=== PATIENT | female | born 1950 | race Caucasian/White ===

== ENCOUNTER 2019-06-18 08:18 | Emergency (ER) | payer MEDICARE ==
--- NOTE | 2019-06-18 08:48 | RAD REPORT ---
EXAM DESCRIPTION: CT - Ct Stroke Brain Wo Cont - 06/18/2019 8:37 am CLINICAL HISTORY: Acute onset right-sided weakness CLINICAL HISTORY: None. TECHNIQUE: Axial 5 millimeter thick images of the head were obtained without IV contrast. All CT scans are performed using dose optimization technique as appropriate and may include automated exposure control or mA/KV adjustment according to patient size. FINDINGS: No intracranial hemorrhage, mass, or cerebral edema. No acute cortical based infarction id entified. No cortical edema or sulcal effacement. No extra-axial fluid collections. Calixto matter-whit e matter differentiation is preserved. Atrophy is minimal. Ventricles are normal in size. Patient has prominent chronic ischemic changes in the cerebral white matter. Significant disease extends into the external capsule on the left and the posterior limb internal capsule on the left. Visualized portions of the mastoid air cells, paranasal sinuses, and orbits are unremarkable. Findings telephoned to doctor Andersen 8:44 a.m.. IMPRESSION: No intracranial hemorrhage is present. An acute cortical based infarction is not evident at this time. The patient has extensive cerebral hemisphere white matter disease that also extends into the left-si de posterior limb internal capsule and left-side external capsule. These changes could easily mask a nonhemorrhagic acute CVA.
[2019-06-18] MEDS ORDERED: ALTEPLASE 100 ML IV ONE (08:57)
--- NOTE | 2019-06-18 08:59 | EDPHYS ---
Physician Documentation [facility] Name: Brii Greco Age: 69 yrs Sex: Female : 1950 Arrival Date: 06/18/2019 Time: 08:20 Bed 2 Private MD: TERESA Physician Marcos Andersen HPI: 06/18 08:52 This 69 yrs old Female presents to ER via Ambulatory with complaints of mira Numbness Of Arm, Numbness Of Hand. 08:52 The patient or guardian complains of decreased range of motion, weakness. The mira complaints affect the right bicep, dorsal aspect of right forearm, right tricep and palmar aspect of right forearm. 08:53 Context: The problem was sustained at home. Onset: The symptoms/episode began/occurred mira 2 hour(s) ago. Treatment prior to arrival includes: no previous treatment. The patient's problem is reported as paresthesias, weakness, in the right lower extremity, in the left upper extremity. Historical: - Allergies: 10:38 No Known Allergies; sg - Home Meds: 10:37 Clonidine Oral [Active]; anxiety medication [Active]; ipratropium-albuterol inhalation sg Inhl [Active]; - PMHx: 10:37 Hypertension; Anxiety; COPD; sg - Immunization history:: Adult Immunizations not up to date. - Social history:: Smoking status: Patient/guardian denies using tobacco. - Family history:: not pertinent. - Ebola Screening: : Patient negative for fever greater than or equal to 101.5 degrees Fahrenheit, and additional compatible Ebola Virus Disease symptoms Patient denies exposure to infectious person Patient denies travel to an Ebola-affected area in the 21 days before illness onset No symptoms or risks identified at this time. ROS: 08:53 Constitutional: Negative for fever, chills, and weight loss, Eyes: Negative for injury, mira pain, redness, and discharge, ENT: Negative for injury, pain, and discharge, Neck: Negative for injury, pain, and swelling, Cardiovascular: Negative for chest pain, palpitations, and edema, Respiratory: Negative for shortness of breath, cough, wheezing, and pleuritic chest pain, Abdomen/GI: Negative for abdominal pain, nausea, vomiting, diarrhea, and constipation, Back: Negative for injury and pain, : Negative for injury, bleeding, discharge, and swelling, MS/Extremity: Negative for injury and deformity, Skin: Negative for injury, rash, and discoloration, Psych: Negative for depression, anxiety, suicide ideation, homicidal ideation, and hallucinations, Allergy/Immunology: Negative for hives, rash, and allergies, Endocrine: Negative for neck swelling, polydipsia, polyuria, polyphagia, and marked weight changes, Hematologic/Lymphatic: Negative for swollen nodes, abnormal bleeding, and unusual bruising. 08:53 Neuro: Positive for weakness, of the right arm and right leg. Exam: 08:53 Radiologist reports: no blood, old changes mira 08:53 Constitutional: This is a well developed, well nourished patient who is awake, alert, and in no acute distress. Head/Face: Normocephalic, atraumatic. Eyes: Pupils equal round and reactive to light, extra-ocular motions intact. Lids and lashes normal. Conjunctiva and sclera are non-icteric and not injected. Cornea within normal limits. Periorbital areas with no swelling, redness, or edema. ENT: Nares patent. No nasal discharge, no septal abnormalities noted. Tympanic membranes are normal and external auditory canals are clear. Oropharynx with no redness, swelling, or masses, exudates, or evidence of obstruction, uvula midline. Mucous membranes moist. Neck: Trachea midline, no thyromegaly or masses palpated, and no cervical lymphadenopathy. Supple, full range of motion without nuchal rigidity, or vertebral point tenderness. No Meningismus. Chest/axilla: Normal chest wall appearance and motion. Nontender with no deformity. No lesions are appreciated. Cardiovascular: Regular rate and rhythm with a normal S1 and S2. No gallops, murmurs, or rubs. Normal PMI, no JVD. No pulse deficits. Respiratory: Lungs have equal breath sounds bilaterally, clear to auscultation and percussion. No rales, rhonchi or wheezes noted. No increased work of breathing, no retractions or nasal flaring. Abdomen/GI: Soft, non-tender, with normal bowel sounds. No distension or tympany. No guarding or rebound. No evidence of tenderness throughout. Back: No spinal tenderness. No costovertebral tenderness. Full range of motion. Female : Normal external genitalia. Skin: Warm, dry with normal turgor. Normal color with no rashes, no lesions, and no evidence of cellulitis. Psych: Awake, alert, with orientation to person, place and time. Behavior, mood, and affect are within normal limits. 08:53 Neuro: Orientation: is normal, appropriate for stated age, no acute changes, Mentation: is normal, appropriate for stated age, no acute changes, Memory: is normal, appropriate for stated age, no acute changes, Cranial nerves: grossly normal, is grossly normal based on the patient's age, no acute changes, Motor: moves all fours, strength is 4/5 in the right arm and right leg, Sensation: light touch is decreased in the right arm and right leg, Gait: not tested. Deep tendon reflexes are 2+ (normal) in the bilateral brachioradialis, bicep, tricep and patellar and Achilles tendons, Babinski testing is normal. Vital Signs: 08:40 Weight 77.07 kg (M); sg 08:45 BP 172 / 80; Pulse 81; Resp 16; Temp 97.7; Pulse Ox 100% on R/A; sg 09:00 BP 177 / 84; Pulse 81; Resp 17; Pulse Ox 98% on R/A; sg 09:15 BP 184 / 94; Pulse 71; Resp 17; Pulse Ox 98% on R/A; sg 09:30 BP 179 / 92; Pulse 72; Resp 17; Pulse Ox 95% on R/A; sg 09:45 BP 168 / 92; Pulse 71; Resp 17; Pulse Ox 96% on R/A; sg 10:00 BP 168 / 92; Pulse 77; Resp 16; Pulse Ox 98% on R/A; sg 10:15 sg 11:10 BP 177 / 82; Pulse 71; Resp 18; Temp 97.1; Pulse Ox 98% on R/A; Pain 0/10; sg 10:15 SEE TPA VS sheet for q 15 min VS sg NIH Stroke Scale Scores: 08:52 NIHSS Score: 5 09:00 NIHSS Score: 5 [facility] 10:00 NIHSS Score: 0 MDM: 08:42 Patient medically screened. [facility] 08:53 Data reviewed: vital signs, nurses notes, lab test result(s), EKG, radiologic studies, [facility] CT scan, plain films. 06/18 08:31 Order name: Basic Metabolic Panel; Complete Time: 09:51 06/18 08:31 Order name: CBC with Diff; Complete Time: 09:51 ss 06/18 08:31 Order name: Protime (+inr); Complete Time: 09:51 ss 06/18 08:31 Order name: Ptt, Activated; Complete Time: 09:51 ss 06/18 09:02 Order name: Glucose, Ancillary Testing; Complete Time: 09:51 EDMS 06/18 08:31 Order name: CT Stroke Brain w/o Contrast; Complete Time: 09:51 ss 06/18 08:31 Order name: Stroke CXR 1 View; Complete Time: 10:41 ss 06/18 08:45 Order name: CT Head Angio; Complete Time: 10:41 mira 06/18 08:31 Order name: EKG; Complete Time: 08:32 ss 06/18 08:31 Order name: Accucheck; Complete Time: 08:58 ss 06/18 08:31 Order name: Cardiac monitoring; Complete Time: 08:58 ss 06/18 08:31 Order name: EKG - Nurse/Tech; Complete Time: 08:58 ss 06/18 08:31 Order name: IV Saline Lock; Complete Time: 08:58 ss 06/18 08:31 Order name: Labs collected and sent; Complete Time: 08:58 ss 06/18 08:31 Order name: NPO; Complete Time: 08:58 ss 06/18 08:31 Order name: O2 Per Protocol; Complete Time: 08:58 ss 06/18 08:31 Order name: O2 Sat Monitoring; Complete Time: 08:58 ss 06/18 08:31 Order name: Stroke Swallow Screen; Complete Time: 10:36 ss Administered Medications: 09:08 Drug: ACTIvase {Co-Signature: sg (Bruce Tomlin RN).} Route: IV Thrombolytics; Rate: ss calculated rate; Infused Over: 60 mins; 10:08 Follow up: Response: No adverse reaction; Marked relief of symptoms sg 09:20 Drug: foLIC Acid 1 mg Route: IVPB; Site: left wrist; sg 10:00 Follow up: Response: No adverse reaction; IV Status: Completed infusion sg 09:20 Drug: Pepcid 20 mg Route: IVP; Site: left wrist; sg 09:40 Follow up: Response: No adverse reaction sg 09:20 Drug: Aspirin 81 mg Route: PO; sg 09:30 Follow up: Response: No adverse reaction sg 10:04 Drug: NS 0.9% 1000 ml Route: IV; Rate: 1 bolus; Site: left wrist; sg 11:00 Follow up: Response: No adverse reaction; IV Status: Completed infusion; IV Intake: sg 1000ml 10:30 Drug: SOLU-Medrol 125 mg Route: IVP; Site: left wrist; sg 11:00 Follow up: Response: No adverse reaction sg 10:30 Drug: Xopenex 1.25 mg Route: Inhalation; sg 10:30 Drug: AtroVENT Aerosol 0.5 mg Route: Inhalation; sg 11:08 Drug: Ativan 0.5 mg Route: IVP; Site: right wrist; sg 11:08 Follow up: Response: No adverse reaction; Medication administered at discharge.; RASS: sg Alert and Calm (0) 11:08 Drug: Zofran 4 mg Route: IVP; Site: right wrist; sg 11:10 Follow up: Response: No adverse reaction sg 19:45 Not Given (Patient Refused): Rocephin 1 grams IV at per protocol once; Given slow IV sg push per pharmacy instructions Disposition: 06/18/19 08:[address] [facility]. Diagnosis is Cerebral infarction. - Reason for transfer: Higher level of care. - Accepting physician is [facility] , neuro. - Condition is Fair. - Problem is new. - Symptoms have improved. NIH Stroke Scale - NIH Stroke Score Date: 06/18/2019 Time: 08:52 Total Score = 5 1a. Level of Consciousness (LOC) - 0(Alert) 1b. Level of Consciousness (LOC) (Year \T\ Age) - 0(Both) 1c. LOC Commands (Open \T\ Closes Eyes/Psychiatry Adult Physician) - 0(Both) 2. Best Gaze (Lateral Gaze Paresis) - 0(Normal) 3. Visual Field Loss - 0(No visual loss) 4. Facial Palsy - 0(Normal) 5a. Left Arm: Motor (10-second hold) - 0(No drift) 5b. Right Arm: Motor (10-second hold) - 2(Drift, some effort against gravity) 6a. Left Leg: Motor (5-second hold - always test supine) - 0(No drift) 6b. Right Leg: Motor (5-second hold - always test supine) - 2(Drift, some effort against gravity) 7. Limb Ataxia (finger/nose \T\ heel/cordova - test with eyes open) - 1(Present in one limb) 8. Sensory Loss (pinprick arms/legs/face) - 0(Normal) 9. Best Language: Aphasia (description/naming/reading) - 0(No aphasia) 10. Dysarthria (speech clarity - read or repeat words) - 0(Normal) 11. Extinction and Inattention (visual/tactile/auditory/spatial/personal) - 0(No abnormality) Initials: NIH Stroke Scale - NIH Stroke Score Date: 06/18/2019 Time: 09:00 Total Score = 5 1a. Level of Consciousness (LOC) - 0(Alert) 1b. Level of Consciousness (LOC) (Year \T\ Age) - 0(Both) 1c. LOC Commands (Open \T\ Closes Eyes/Psychiatry Adult Physician) - 0(Both) 2. Best Gaze (Lateral Gaze Paresis) - 0(Normal) 3. Visual Field Loss - 0(No visual loss) 4. Facial Palsy - 0(Normal) 5a. Left Arm: Motor (10-second hold) - 0(No drift) 5b. Right Arm: Motor (10-second hold) - 1(Drift) 6a. Left Leg: Motor (5-second hold - always test supine) - 0(No drift) 6b. Right Leg: Motor (5-second hold - always test supine) - 1(Drift) 7. Limb Ataxia (finger/nose \T\ heel/cordova - test with eyes open) - 2(Present in two limbs) 8. Sensory Loss (pinprick arms/legs/face) - 1(Mild to moderate loss) 9. Best Language: Aphasia (description/naming/reading) - 0(No aphasia) 10. Dysarthria (speech clarity - read or repeat words) - 0(Normal) 11. Extinction and Inattention (visual/tactile/auditory/spatial/personal) - 0(No abnormality) Initials: [facility] NIH Stroke Scale - NIH Stroke Score Date: 06/18/2019 Time: 10:00 Total Score = 0 1a. Level of Consciousness (LOC) - 0(Alert) 1b. Level of Consciousness (LOC) (Year \T\ Age) - 0(Both) 1c. LOC Commands (Open \T\ Closes Eyes/Psychiatry Adult Physician) - 0(Both) 2. Best Gaze (Lateral Gaze Paresis) - 0(Normal) 3. Visual Field Loss - 0(No visual loss) 4. Facial Palsy - 0(Normal) 5a. Left Arm: Motor (10-second hold) - 0(No drift) 5b. Right Arm: Motor (10-second hold) - 0(No drift) 6a. Left Leg: Motor (5-second hold - always test supine) - 0(No drift) 6b. Right Leg: Motor (5-second hold - always test supine) - 0(No drift) 7. Limb Ataxia (finger/nose \T\ heel/cordova - test with eyes open) - 0(Absent) 8. Sensory Loss (pinprick arms/legs/face) - 0(Normal) 9. Best Language: Aphasia (description/naming/reading) - 0(No aphasia) 10. Dysarthria (speech clarity - read or repeat words) - 0(Normal) 11. Extinction and Inattention (visual/tactile/auditory/spatial/personal) - 0(No abnormality) Initials: Signatures: Dispatcher [employer] EDBrcue Doty RN RN sg Anderson, Corey, MD MD cha Smirch, Shelby, RN RN ss Bruce galo Corrections: (The following items were deleted from the chart) 11:11 08:58 06/18/2019 08:[address] [facility]. sg Diagnosis is Cerebral infarction. Reason for transfer: Higher level of care. Accepting physician is darshan , neuro. Condition is Fair. Problem is new. Symptoms have improved. mira
--- NOTE | 2019-06-18 08:59 | ER ---
Nurse's Notes [facility] Name: Brii Greco Age: 69 yrs Sex: Female : 1950 Arrival Date: 06/18/2019 Time: 08:20 Bed 2 Private MD: Diagnosis: Cerebral infarction Presentation: 06/18 08:28 Presenting complaint: Patient states: R sided weakness that began this morning at ss approximately 0700. Pt states, "I was dropping my grandson off at school this morning and when I let go of the steering wheel, my R arm just dropped. It felt a little tingling from my R elbow down and now it's just warm. My leg is also a little heavy and I just noticed that when I was getting into the wheelchair." Denies pain at this time. VAN scoring negative. Transition of care: patient was not received from another setting of care. Onset of symptoms was June 18, 2019 at 07:00. Risk Assessment: Do you want to hurt yourself or someone else? Patient reports no desire to harm self or others. Initial Sepsis Screen: Does the patient have a suspected source of infection? No. Patient's initial sepsis screen is negative. Care prior to arrival: None. 08:28 Method Of Arrival: Ambulatory ss 08:28 Acuity: ASHLY 2 ss Historical: - Allergies: 10:38 No Known Allergies; sg - Home Meds: 10:37 Clonidine Oral [Active]; anxiety medication [Active]; ipratropium-albuterol inhalation sg Inhl [Active]; - PMHx: 10:37 Hypertension; Anxiety; COPD; sg - Immunization history:: Adult Immunizations not up to date. - Social history:: Smoking status: Patient/guardian denies using tobacco. - Family history:: not pertinent. - Ebola Screening: : Patient negative for fever greater than or equal to 101.5 degrees Fahrenheit, and additional compatible Ebola Virus Disease symptoms Patient denies exposure to infectious person Patient denies travel to an Ebola-affected area in the 21 days before illness onset No symptoms or risks identified at this time. Assessment: 08:40 General: Appears in no apparent distress. well groomed, well developed, well nourished, sg Behavior is calm, cooperative, appropriate for age. Pain: Denies pain. Neuro: Level of Consciousness is awake, alert, obeys commands, Oriented to person, place, time, Speech is normal, Facial symmetry appears normal. Neuro: Reports numbness in right hand and right leg weakness in right leg. Cardiovascular: Patient's skin is warm and dry. Chest pain is denied. Respiratory: Airway is patent Respiratory effort is even, unlabored, Respiratory pattern is regular, symmetrical. GI: No signs and/or symptoms were reported involving the gastrointestinal system. : No signs and/or symptoms were reported regarding the genitourinary system. EENT: No signs and/or symptoms were reported regarding the EENT system. Derm: Skin is pale, Skin temperature is warm. Musculoskeletal: Circulation, motion, and sensation intact. 09:40 Reassessment: Patient appears in no apparent distress at this time. Patient and/or sg family updated on plan of care and expected duration. Pain level reassessed. Patient is alert, oriented x 3, equal unlabored respirations, skin warm/dry/pink. Patient states feeling better. 10:00 Reassessment: Patient appears in no apparent distress at this time. pt reports sg improvement in symptoms, notified. Vital Signs: 08:40 Weight 77.07 kg (M); sg 08:45 BP 172 / 80; Pulse 81; Resp 16; Temp 97.7; Pulse Ox 100% on R/A; sg 09:00 BP 177 / 84; Pulse 81; Resp 17; Pulse Ox 98% on R/A; sg 09:15 BP 184 / 94; Pulse 71; Resp 17; Pulse Ox 98% on R/A; sg 09:30 BP 179 / 92; Pulse 72; Resp 17; Pulse Ox 95% on R/A; sg 09:45 BP 168 / 92; Pulse 71; Resp 17; Pulse Ox 96% on R/A; sg 10:00 BP 168 / 92; Pulse 77; Resp 16; Pulse Ox 98% on R/A; sg 10:15 sg 11:10 BP 177 / 82; Pulse 71; Resp 18; Temp 97.1; Pulse Ox 98% on R/A; Pain 0/10; sg 10:15 SEE TPA VS sheet for q 15 min VS sg NIH Stroke Scale Scores: 08:52 NIHSS Score: 5 sg 09:00 NIHSS Score: 5 mira 10:00 NIHSS Score: 0 ED Course: 08:20 Patient arrived in ED. as 08:30 Triage completed. ss 08:30 Arm band placed on right wrist. ss 08:37 CT Stroke Brain w/o Contrast In Process Unspecified. EDMS 08:40 Patient has correct armband on for positive identification. Bed in low position. Call sg light in reach. Pulse ox on. NIBP on. Warm blanket given. Verbal reassurance given. Head of bed elevated. 08:42 Marcos Andersen MD is Attending Physician. mira 08:55 Inserted saline lock: 20 gauge in right wrist, using aseptic technique. sg 08:56 EKG done, by technical publications writer. reviewed by Marcos Andersen MD. at1 08:[address] Andersen with Bruce Cintron O And M Supervisor from [facility]. 08:58 Inserted saline lock: 20 gauge in left wrist, using aseptic technique. ms 09:[address] Crane the neurologist cotton factor for [facility] with Dr. Andersen for patient transfer consultation. 09:18 administrative approval given by Bruce Cintron Other Spatial Scientist O And M Supervisor. patient eb has been accepted to [facility] 7511/ Dr. Crane has accepted the patient in transfer/ report to be called to [phone]. 09:24 Bruce Tomlin, RN is Primary Nurse. sg 09:29 Stroke CXR 1 View In Process Unspecified. EDMS 09:55 CT Head Angio In Process Unspecified. EDMS 11:10 No provider procedures requiring assistance completed. Patient transferred, IV remains sg in place. intact, No redness/swelling at site. Administered Medications: 09:08 Drug: ACTIvase {Co-Signature: iraj (Bruce Tomlin RN).} Route: IV Thrombolytics; Rate: ss calculated rate; Infused Over: 60 mins; 10:08 Follow up: Response: No adverse reaction; Marked relief of symptoms sg 09:20 Drug: foLIC Acid 1 mg Route: IVPB; Site: left wrist; sg 10:00 Follow up: Response: No adverse reaction; IV Status: Completed infusion sg 09:20 Drug: Pepcid 20 mg Route: IVP; Site: left wrist; sg 09:40 Follow up: Response: No adverse reaction sg 09:20 Drug: Aspirin 81 mg Route: PO; sg 09:30 Follow up: Response: No adverse reaction sg 10:04 Drug: NS 0.9% 1000 ml Route: IV; Rate: 1 bolus; Site: left wrist; sg 11:00 Follow up: Response: No adverse reaction; IV Status: Completed infusion; IV Intake: sg 1000ml 10:30 Drug: SOLU-Medrol 125 mg Route: IVP; Site: left wrist; sg 11:00 Follow up: Response: No adverse reaction sg 10:30 Drug: Xopenex 1.25 mg Route: Inhalation; sg 10:30 Drug: AtroVENT Aerosol 0.5 mg Route: Inhalation; sg 11:08 Drug: Ativan 0.5 mg Route: IVP; Site: right wrist; sg 11:08 Follow up: Response: No adverse reaction; Medication administered at discharge.; RASS: sg Alert and Calm (0) 11:08 Drug: Zofran 4 mg Route: IVP; Site: right wrist; sg 11:10 Follow up: Response: No adverse reaction sg 19:45 Not Given (Patient Refused): Rocephin 1 grams IV at per protocol once; Given slow IV sg push per pharmacy instructions Outcome: 08:58 ER care complete, transfer ordered by . mira 11:10 Transferred by ground EMS to [facility], Transfer form completed. sg 11:10 Condition: good 11:10 Instructed on the need for transfer, safety practices, Demonstrated understanding of instructions, follow-up care. 11:11 Patient left the ED. NIH Stroke Scale - NIH Stroke Score Date: 06/18/2019 Time: 08:52 Total Score = 5 1a. Level of Consciousness (LOC) - 0(Alert) 1b. Level of Consciousness (LOC) (Year \\T\\ Age) - 0(Both) 1c. LOC Commands (Open \\T\\ Closes Eyes/Revenue Liaison) - 0(Both) 2. Best Gaze (Lateral Gaze Paresis) - 0(Normal) 3. Visual Field Loss - 0(No visual loss) 4. Facial Palsy - 0(Normal) 5a. Left Arm: Motor (10-second hold) - 0(No drift) 5b. Right Arm: Motor (10-second hold) - 2(Drift, some effort against gravity) 6a. Left Leg: Motor (5-second hold - always test supine) - 0(No drift) 6b. Right Leg: Motor (5-second hold - always test supine) - 2(Drift, some effort against gravity) 7. Limb Ataxia (finger/nose \\T\\ heel/cordova - test with eyes open) - 1(Present in one limb) 8. Sensory Loss (pinprick arms/legs/face) - 0(Normal) 9. Best Language: Aphasia (description/naming/reading) - 0(No aphasia) 10. Dysarthria (speech clarity - read or repeat words) - 0(Normal) 11. Extinction and Inattention (visual/tactile/auditory/spatial/personal) - 0(No abnormality) Initials: NIH Stroke Scale - NIH Stroke Score Date: 06/18/2019 Time: 09:00 Total Score = 5 1a. Level of Consciousness (LOC) - 0(Alert) 1b. Level of Consciousness (LOC) (Year \\T\\ Age) - 0(Both) 1c. LOC Commands (Open \\T\\ Closes Eyes/Revenue Liaison) - 0(Both) 2. Best Gaze (Lateral Gaze Paresis) - 0(Normal) 3. Visual Field Loss - 0(No visual loss) 4. Facial Palsy - 0(Normal) 5a. Left Arm: Motor (10-second hold) - 0(No drift) 5b. Right Arm: Motor (10-second hold) - 1(Drift) 6a. Left Leg: Motor (5-second hold - always test supine) - 0(No drift) 6b. Right Leg: Motor (5-second hold - always test supine) - 1(Drift) 7. Limb Ataxia (finger/nose \\T\\ heel/cordova - test with eyes open) - 2(Present in two limbs) 8. Sensory Loss (pinprick arms/legs/face) - 1(Mild to moderate loss) 9. Best Language: Aphasia (description/naming/reading) - 0(No aphasia) 10. Dysarthria (speech clarity - read or repeat words) - 0(Normal) 11. Extinction and Inattention (visual/tactile/auditory/spatial/personal) - 0(No abnormality) Initials: [facility] NIH Stroke Scale - NIH Stroke Score Date: 06/18/2019 Time: 10:00 Total Score = 0 1a. Level of Consciousness (LOC) - 0(Alert) 1b. Level of Consciousness (LOC) (Year \\T\\ Age) - 0(Both) 1c. LOC Commands (Open \\T\\ Closes Eyes/Revenue Liaison) - 0(Both) 2. Best Gaze (Lateral Gaze Paresis) - 0(Normal) 3. Visual Field Loss - 0(No visual loss) 4. Facial Palsy - 0(Normal) 5a. Left Arm: Motor (10-second hold) - 0(No drift) 5b. Right Arm: Motor (10-second hold) - 0(No drift) 6a. Left Leg: Motor (5-second hold - always test supine) - 0(No drift) 6b. Right Leg: Motor (5-second hold - always test supine) - 0(No drift) 7. Limb Ataxia (finger/nose \\T\\ heel/cordova - test with eyes open) - 0(Absent) 8. Sensory Loss (pinprick arms/legs/face) - 0(Normal) 9. Best Language: Aphasia (description/naming/reading) - 0(No aphasia) 10. Dysarthria (speech clarity - read or repeat words) - 0(Normal) 11. Extinction and Inattention (visual/tactile/auditory/spatial/personal) - 0(No abnormality) Initials: sg Signatures: Dispatcher [employer] Bruce De La Torre, RN RN Marcos Mccauley MD MD cha Martinez, Josey Gomez ms, Shelby, RN RN Melony Jolly, tape transferrer EKG Tat1 Chrissy Nettles RN sg
[2019-06-18 09:04] LABS: Absolute Lymphocytes (CBC) 1.8 K/uL (0.7-4.9); Hematocrit 37.5 % (36.0-45.0); Lymphocytes % 28.7 % (15.3-44.8); MPV 7.7 fL (7.6-11.3); RBC Red Blood Cell Count 4.04 M/uL (3.86-4.86)
[2019-06-18 09:20] LABS: Potassium 3.8 mmol/L (3.5-5.1)
[2019-06-18] MEDS ORDERED: NA CHLORIDE 0.9% 1,000 ML ONE (09:32)
[2019-06-18] MEDS ORDERED: ASPIRIN 81 MG CHEWABLE TABLET ONE (09:32)
[2019-06-18] MEDS ORDERED: FOLIC ACID 5 MG/ML VIAL ONE (09:34)
[2019-06-18] MEDS ORDERED: FAMOTIDINE 20 MG/2 ML VIAL IV ONE (09:34)
[2019-06-18] MEDS ORDERED: LEVALBUTEROL 1.25 MG/3 ML NEB ONE (10:27)
[2019-06-18] MEDS ORDERED: CEFTRIAXONE/SWI 1gm 0 GM/0 ML SYR ONE (10:27)
[2019-06-18] MEDS ORDERED: IPRATROPIUM BROM 0.5MG/2.5ML ONE (10:27)
[2019-06-18] MEDS ORDERED: METHYLPREDNISOLONE 125 MG INJ ONE (10:27)
--- NOTE | 2019-06-18 10:27 | RAD REPORT ---
EXAM DESCRIPTION: CTHead angio06/18/2019 9:54 am CLINICAL HISTORY: Right sided weakness and numbness COMPARISON: None TECHNIQUE: CT angiogram of the head was obtained. 3D MIPS reconstruction performed. All CT scans are performed using dose optimization technique as appropriate and may include automated exposure control or mA/KV adjustment according to patient size. FINDINGS: The basilar, internal carotid, anterior cerebral, middle cerebral and posterior cerebral a rteries are normal caliber. An aneurysm is not seen. A significant stenosis is not noted. IMPRESSION: Unremarkable CT angiogram head.
--- NOTE | 2019-06-18 10:38 | RAD REPORT ---
EXAM DESCRIPTION: RAD - Chest Single View - 06/18/2019 9:30 am CLINICAL HISTORY: Code stroke chest film COMPARISON: None. TECHNIQUE: AP portable chest image was obtained 0927 hours . FINDINGS: No focal lung parenchymal process. Interstitial markings are prominent believed to be base line. Heart and vasculature are normal. No measurable pleural effusion and no pneumothorax. No acute bony abnormality seen. No acute aortic findings suspected. IMPRESSION: No acute cardiopulmonary process.
[2019-06-18] MEDS ORDERED: ONDANSETRON 4 MG/2 ML VIAL ONE (10:47)
[2019-06-18] MEDS ORDERED: LORazepam 2 MG/ML VIAL ONE (10:47)
[2019-06-18 11:19] VITALS: TEMP 97.7
[2019-06-18 11:24] VITALS: BP 168/92
[2019-06-18 11:26] VITALS: O2SAT 98
--- NOTE | 2019-06-18 12:17 | EKG ---
Test Date: 2019-06-18 Test Time: 09:51:43 Writing Manager: LEENA MEASUREMENT RESULTS: Intervals: Rate: 85 AK: 136 QRSD: 84 QT: 404 QTc: 480 Gibson: P: 65 AK: 136 QRS: 52 T: 39 INTERPRETIVE STATEMENTS: Normal sinus rhythm Normal ECG No previous ECG available for comparison Electronically Signed On 06-18-19 12:16:23 FORDER OPERATOR by Eduardo Lozano
== END 2019-06-18 11:11 | disposition short-term general hospital (02) ==
LOC: ER 08:18
DX: I63.9 Cerebral infarction, unspecified (principal); I10 Essential (primary) hypertension; R29.705 NIHSS score 5
CPT/HCPCS: 96374 ×2; 96361; 92977; 93005; 85025; 80048; 36415; 85610; 82947; 85730; 70496; 70450; 71045; 96375; 99285; Q9967; J2997; J7030; J2930; J2405; J0696

== ENCOUNTER 2021-12-26 15:50 | Emergency (ER) | payer OTHER, MEDICARE ==
[2021-12-26] MEDS ORDERED: ONDANSETRON 4 MG/2 ML VIAL ONE (16:48)
[2021-12-26 17:40] LABS: Hematocrit 38.2 % (36.0-45.0); Lymphocytes % 11.3 % (15.3-44.8); MCV 87.7 fL (80-100); MPV 6.9 fL (7.6-11.3); RBC Red Blood Cell Count 4.36 M/uL (3.86-4.86)
[2021-12-26 17:57] LABS: Albumin 3.9 g/dL (3.4-5.0); Bilirubin Total 0.4 mg/dL (0.2-1.0); Protein, Total 7.8 g/dL (6.4-8.2)
[2021-12-26 17:59] LABS: Potassium 2.9 mmol/L (3.5-5.1)
[2021-12-26] MEDS ORDERED: NA CHLORIDE 0.9% 500 ML ONE (18:11)
--- NOTE | 2021-12-26 18:30 | RAD REPORT ---
EXAM DESCRIPTION: CTAbdomen Pelvis W Contrast - 12/26/2021 6:20 pm CLINICAL HISTORY: abdominal pain, vomiting COMPARISON: Lumbar Spine 3 Views dated 10/22/2021 TECHNIQUE: CT of the abdomen and pelvis was performed with IV contrast. All CT scans are performed using dose optimization technique as appropriate and may include automated exposure control or mA/KV adjustment according to patient size. FINDINGS: Lower chest: Likely postoperative changes from a slipped Joan fundoplication. Liver: No acute abnormality or suspicious lesions. Biliary: Cholelithiasis. Stomach: No significant focal abnormality. Duodenum: No significant focal abnormality. Pancreas: No significant abnormality. Spleen: No significant abnormality. Adrenal: No suspicious lesions. Kidney/ureter: No hydronephrosis. No renal calculi. Retroperitoneum: No retroperitoneal adenopathy. Vascular: No aneurysm. Atherosclerosis. Bowel: No significant focal abnormality. Normal appendix. Peritoneum: No ascites or free air. Bladder: Grossly unremarkable. Reproductive: No adnexal masses. Bones: Remote T12 compression fracture with bony retropulsion and critical central spinal stenosis . Other: n/a IMPRESSION: No acute intra-abdominal or pelvic finding. Hiatal hernia with presumed slipped fundopli cation. Correlate with surgical history. Cholelithiasis without CT evidence of acute cholecystitis.
[2021-12-26 19:47] LABS: Urine Blood Negative (Negative); Urine Glucose Negative (Negative); Urine Protein 1+ (Negative); Urine Specific Gravity 1.015 (1.005-1.030); Urine pH 5.5 (5.0-7.0)
--- NOTE | 2021-12-26 19:47 | ER ---
Nurse's Notes [facility] Name: Brii Greco Age: 71 yrs Sex: Female : 1950 Arrival Date: 12/26/2021 Time: 15:51 Bed 2 Private MD: Shakeel Mckeon T Diagnosis: Vomiting;Other abdominal pain Presentation: 12/26 16:20 Chief complaint: Patient states: N/V started 3 days ago after taking tramadol. reports 6 that she has not taken and further meds but remains nauseated. has vomited once in last 24hrs. Coronavirus screen: Vaccine status: Patient reports receiving the 2nd dose of the covid vaccine. Ebola Screen: Patient negative for fever greater than or equal to 101.5 degrees Fahrenheit, and additional compatible Ebola Virus Disease symptoms Patient denies exposure to infectious person. Patient denies travel to an Ebola-affected area in the 21 days before illness onset. Initial Sepsis Screen: Does the patient meet any 2 criteria? Systolic BP < 90 mmHg. HR > 90 bpm. Does the patient have a suspected source of infection? No. Patient's initial sepsis screen is negative. Risk Assessment: Do you want to hurt yourself or someone else? Patient reports no desire to harm self or others. Onset of symptoms was December 23, 2021. 16:20 Method Of Arrival: Ambulatory [facility] 16:20 Acuity: ASHLY 3 [facility] Triage Assessment: 16:25 General: Appears in no apparent distress. uncomfortable, Behavior is calm, cooperative. [facility] Pain: Complains of pain in right upper quadrant, left upper quadrant, right lower quadrant and left lower quadrant Pain currently is 9 out of 10 on a pain scale. Quality of pain is described as aching, Pain began 2-3 days ago. Is continuous. GI: Reports lower abdominal pain, upper abdominal pain, nausea, vomiting. Historical: - Allergies: 16:24 No Known Allergies; jh6 - PMHx: 16:24 Anxiety; COPD; Hypertension; 6 - Immunization history:: Client reports receiving the 2nd dose of the Covid vaccine. - Social history:: Smoking status: Patient denies any tobacco usage or history of. Screenin:00 Abuse screen: Denies threats or abuse. Nutritional screening: No deficits noted. ke1 Tuberculosis screening: No symptoms or risk factors identified. Fall Risk No fall in past 12 months (0 pts). No secondary diagnosis (0 pts). IV access (20 points). Ambulatory Aid- Crutches/Cane/Walker (15 pts). Gait- Impaired (20 pts.). Mental Status- Oriented to own ability (0 pts). Total Castle Fall Scale indicates High Risk Score (45 or more points). Fall prevention measures have been instituted. Side Rails Up X 2 1:1 Attendant Assigned Frequent Obs/Assessments Occuring Family Present and informed to notify staff if the need to leave the bedside As available patient and family educated on Fall Prevention Program and Strategies. Assessment: 17:15 Reassessment: No changes from previously documented assessment. Patient and/or family kr3 updated on plan of care and expected duration. Pain level reassessed. 18:10 Reassessment: No changes from previously documented assessment. Patient and/or family kr3 updated on plan of care and expected duration. Pain level reassessed. 19:00 GI: Abdomen is flat, non-distended. ke1 Vital Signs: 16:20 BP 154 / 118; Pulse 120; Resp 18; Temp 98.5; Pulse Ox 100% ; Weight 65.77 kg; Height 5 jh6 ft. 4 in. (162.56 cm); Pain 4/10; 17:27 BP 163 / 108; Pulse 122; Resp 17; Pulse Ox 96% on R/A; jg9 18:12 Pulse 113; kr3 19:00 BP 173 / 126; Pulse 114; Resp 17; Pulse Ox 97% ; kr3 19:49 BP 165 / 118; Pulse 108; Resp 18; Pulse Ox 97% on R/A; Pain 0/10; ke1 16:20 Body Mass Index 24.89 (65.77 kg, 162.56 cm) [facility] ED Course: 15:51 Patient arrived in ED. mr 15:51 Shakeel Mckeon MD is Private Physician. mr 15:59 [facility]islav Brito [facility] 15:59 German Morrison DO is Attending Physician. [facility] 16:24 Triage completed. jh6 16:26 Arm band placed on left wrist. 6 16:28 Tawana Gao, ELIZABETH is Primary Nurse. kr3 16:28 Patient placed in an exam room, on a stretcher. kr3 18:22 CT Abd/Pelvis - IV Contrast Only In Process Unspecified. EDMS 19:00 Call light in reach. Side rails up X 1. Side rails up X2. ke1 19:47 Shakeel Mckeon MD is Referral Physician. [facility] 19:50 No provider procedures requiring assistance completed. ke1 19:51 IV discontinued. ke1 Administered Medications: 16:47 Drug: Zofran (Ondansetron) 4 mg Route: IVP; Site: left antecubital; bm7 18:58 Follow up: Response: No adverse reaction kr3 18:12 Drug: NS 0.9% 500 ml Route: IV; Rate: bolus; Site: left antecubital; kr3 19:52 Follow up: IV Status: Completed infusion ke1 Medication: 19:51 VIS not applicable for this client. ke1 Outcome: 19:47 Discharge ordered by . [facility] 19:51 Discharged to home via wheelchair. ke1 19:51 Condition: good 19:51 Discharge instructions given to patient. 20:00 Patient left the ED. ke1 Signatures: Dispatcher [employer] EDMS Stanislav Brito PA PA [facility] Samara Morales mr Nata Del Castillo, RN RN bm7 Mechelle Ford, RN RN jh6 Mechelle Freeman, RN RN jg9 Jimena Montelongo RN RN ke1 Tawana Gao, RN RN kr3
--- NOTE | 2021-12-26 19:47 | EDPHYS ---
Physician Documentation [facility] Name: Brii Greco Age: 71 yrs Sex: Female : 1950 Arrival Date: 12/26/2021 Time: 15:51 Bed 2 Private MD: Shakeel Mckeon T ED Physician German Morrison HPI: 12/26 16:33 This 71 yrs old Female presents to ER via Ambulatory with complaints of Nausea/Vomiting.jmm 16:33 The patient presents to the emergency department with nausea, vomiting, abdominal pain. jmm Onset: The symptoms/episode began/occurred gradually. Possible causes: unknown. The symptoms are aggravated by nothing. The symptoms are alleviated by nothing. 16:33 Possible causes: tramadol. jmm 16:33 Associated signs and symptoms: Pertinent negatives:. jmm 16:33 It is unknown whether or not the patient has had similar symptoms in the past. jmm Historical: - Allergies: 16:24 No Known Allergies; [facility] - PMHx: 16:24 Anxiety; COPD; Hypertension; [facility] - Immunization history:: Client reports receiving the 2nd dose of the Covid vaccine. - Social history:: Smoking status: Patient denies any tobacco usage or history of. ROS: 16:33 Constitutional: Negative for fever, chills, and weight loss, Cardiovascular: Negative jm for chest pain, palpitations, and edema, Respiratory: Negative for shortness of breath, cough, wheezing, and pleuritic chest pain. 16:33 All other systems are negative. Exam: 16:33 Constitutional: This is a well developed, well nourished patient who is awake, alert, jmm and in no acute distress. Head/Face: atraumatic. Eyes: EOMI, no conjunctival erythema appreciated ENT: Moist Mucus Membranes Neck: Trachea midline, Supple Chest/axilla: Normal chest wall appearance and motion. Cardiovascular: Regular rate and rhythm. No edema appreciated Respiratory: Normal respirations, no respiratory distress appreciated 16:33 Back: Normal ROM Skin: General appearance color normal MS/ Extremity: Moves all extremities, no obvious deformities appreciated, no edema noted to the lower extremities Neuro: Awake and alert Psych: Behavior is normal, Mood is normal, Patient is cooperative and pleasant 16:33 Abdomen/GI: Inspection: abdomen appears normal, Bowel sounds: normal, Palpation: soft, mild abdominal tenderness, in the right upper quadrant and left upper quadrant. Vital Signs: 16:20 BP 154 / 118; Pulse 120; Resp 18; Temp 98.5; Pulse Ox 100% ; Weight 65.77 kg; Height 5 jh6 ft. 4 in. (162.56 cm); Pain 4/10; 17:27 BP 163 / 108; Pulse 122; Resp 17; Pulse Ox 96% on R/A; jg9 18:12 Pulse 113; kr3 19:00 BP 173 / 126; Pulse 114; Resp 17; Pulse Ox 97% ; kr3 19:49 BP 165 / 118; Pulse 108; Resp 18; Pulse Ox 97% on R/A; Pain 0/10; ke1 16:20 Body Mass Index 24.89 (65.77 kg, 162.56 cm) 6 MDM: 16:33 Patient medically screened. [facility] 19:44 Data reviewed: vital signs, nurses notes. Counseling: I had a detailed discussion with [facility] the patient and/or guardian regarding: the historical points, exam findings, and any diagnostic results supporting the discharge/admit diagnosis, lab results, radiology results, the need for outpatient follow up, to return to the emergency department if symptoms worsen or persist or if there are any questions or concerns that arise at home. ED course: Patient states feeling much better. Advised to follow up with pcp and otherwise given strict return precautions. patient understood and agrees with the plan of care. . 12/26 16:37 Order name: CBC with Diff; Complete Time: 18:02 [facility] 12/26 16:37 Order name: CMP; Complete Time: 18:02 [facility] 12/26 16:37 Order name: Lipase; Complete Time: 18:02 [facility] 12/26 16:49 Order name: CT Abd/Pelvis - IV Contrast Only; Complete Time: 18:44 [facility] 12/26 19:47 Order name: Urine Dipstick-Ancillary; Complete Time: 19:49 [facility] 12/26 16:37 Order name: IV Saline Lock; Complete Time: 16:47 [facility] 12/26 16:37 Order name: Labs collected and sent; Complete Time: 18:03 [facility] 12/26 16:37 Order name: Urine Dipstick-Ancillary (obtain specimen); Complete Time: 19:49 [facility] Administered Medications: 16:47 Drug: Zofran (Ondansetron) 4 mg Route: IVP; Site: left antecubital; bm7 18:58 Follow up: Response: No adverse reaction kr3 18:12 Drug: NS 0.9% 500 ml Route: IV; Rate: bolus; Site: left antecubital; kr3 19:52 Follow up: IV Status: Completed infusion ke1 Disposition: 12/27 09:43 Co-signature as Attending Physician, German Morrison DO I was immediately available on-site ms3 in the Emergency Department for consultation in the care of the patient.. Disposition Summary: 12/26/21 19:47 Discharge Ordered Location: Home [facility] Condition: Stable [facility] Diagnosis - Vomiting jmm - Other abdominal pain [facility] Followup: [facility] - With: Shakeel Mckeon MD - When: 1 - 2 days - Reason: Recheck today's complaints, Continuance of care, Re-evaluation by your physician Discharge Instructions: - Discharge Summary Sheet jm - Abdominal Pain, Adult jmm - Vomiting, Adult jmm Forms: - Medication Reconciliation Form [facility] - Thank You Letter [facility] - Antibiotic Education [facility] - Prescription Opioid Use [facility] Prescriptions: - ondansetron 4 mg Oral tablet,disintegrating - place 1 tablet by TRANSLINGUAL route every 4-6 hours followed by 2 additional 8 jmm mg doses at 8 hour intervals; 20 tablet; Refills: 0, Product Selection Permitted - Pepcid 20 mg Oral Tablet - take 1 tablet by ORAL route every 12 hours for 10 days; 20 tablet; Refills: 0, [facility] Product Selection Permitted Signatures: Dispatcher [employer] EDMS Stanislav Brito PA PA [facility] German Morrison DO DO ms3 Nata Del Castillo, RN RN bm7 Mechelle Ford RN RN jh6 Tawana Gao RN RN kr3 Jimena Montelongo RN ke1
[2021-12-26 20:20] VITALS: TEMP 98.5
[2021-12-26 20:26] VITALS: O2SAT 97
[2021-12-26 20:27] VITALS: BP 165/118
--- OUTSIDE RECORDS SUMMARY | 2021-12-27 15:34 | XMS REPORT | Continuity of Care Document ---
:1950 Author Organization [facility] t Address [address] [place] [address] Care Team Providers Name Role Phone Pavan Mann MD Attending Clinician CATHY LOPEZ Attending Clinician Unavail able CATHY LOPEZ Admitting Clinician Unavail able Payers Payer Name Policy Type Policy Number Effective Date Expiration Date S ource Problems This patient has no known problems. Allergies, Adverse Reactions, Alerts This patient has no known allergies or adverse reactions. Social History Social Habit Start Date Stop Date Quantity Comments Source History [facility] Alcohol Std Drinks of Med icine History [facility] Alcohol Binge of Medicine Sex Assigned At [facility] [employer] l[employer] of [employer] Alcohol intake 2019-06-30 2019-06-30 Lifetime [facility] Col lege 00:00:00 00:00:00 non-drinker of Medicine (finding) History [facility] 2019-06-30 2019-06-30 1 [facility] Alcohol Frequency 00:00:00 00:00:00 of Medi cine Smoking Status Start Date Stop Date Source Never smoker [facility] o f Medicine Medications Ordered Filled Start Stop Current Ordering Indication Dosage Frequency Signature Comments Components Source Medication Medication Date Date Medication? Clinician (SIG) Name Name clonidine 2020-0 Yes .2mg Take 0.2 [facility] (CATAPRESS) 1-22 mg by College 0.2 MG 20:02: mouth 3 of tablet 42 times Medicin daily as e needed. ASPIRIN 81 2019-0 Yes Take by [place] [facility] [place] 1-22 mouth. College 20:02: of 42 Medicin e oxybutynin 2020-0 Yes 5mg Take 5 mg [facility] (DITROPAN) -22 by mouth 3 Col lege 5 MG tablet 20:02: times of 42 daily. Medicin e gabapentin 2020-0 Yes 400mg Take 400 [facility] (NEURONTIN) 1-22 mg by [place] 400 MG 20:02: mouth two of capsule 42 times Medicin daily. e carvedilol Yes 25mg Take 25 mg [facility] (COREG) 25 1-22 by mouth 2 [facility]ge MG tablet 20:02: times of 42 daily Medicin (with e meals). Vital Signs Vital Name Observation Time Observation Value Comments Source Systolic blood 2019-06-30 19:55:00 183 mm[Hg] [facility] pressure Medicine Diastolic blood 2019-06-30 19:55:00 107 mm[Hg] [facility] Medicine Heart rate 2019-06-30 19:55:00 80 /min [facility] Body height 2019-06-30 19:55:00 162.6 cm [facility] Body weight 2019-06-30 19:55:00 77.384 kg [facility] BMI 2019-06-30 19:55:00 29.28 kg/m2 [facility] Oxygen saturation in 2019-06-30 19:55:00 99 /min [facility] Arterial blood by [facility] Pulse oximetry Procedures Procedure Date / Time Performing Clinician Source Performed ELECTROCARDIOGRAM COMPLETE 2019-06-30 20:35:37 Beryl Mann [facility] Plan of Care Planned Activity Planned Date Details Comments Source Future Scheduled Test COLON CANCER SCREENING: [facility] COLONOSCOPY [code = Medicine COLON CANCER SCREENING: COLONOSCOPY] Future Scheduled Test MAMMOGRAM ANNUAL [code [facility] = MAMMOGRAM ANNUAL] Medicine Future Scheduled Test MEDICARE AWV [code = [facility] MEDICARE AWV] Medicine Future Scheduled Test TETANUS SHOT (ADULT) [facility] [code = TETANUS SHOT Medicin e (ADULT)] Future Scheduled Test HEPATITIS C SCREENING [facility] [code = HEPATITIS C Medicine SCREENING] Future Scheduled Test FALL SCREEN [code = [facility] FALL SCREEN] Medicine Future Scheduled Test OSTEOPOROSIS SCREENING [facility] [code = OSTEOPOROSIS Medicin e SCREENING] Future Scheduled Test PNEUMOVAX >=65 (PPSV23) [facility] [code = PNEUMOVAX >=65 Medic ine (PPSV23)] Future Scheduled Test PREVNAR >= 65 (PCV13) [facility] [code = PREVNAR >= 65 Medici ne (PCV13)] Future Scheduled Test FLU VACCINE > 6 MONTHS [facility] [code = FLU VACCINE > 6 Medi cine MONTHS] Future Scheduled Test MEDICARE IPPE ([facility] TO MEDICARE) [code = Medicin e MEDICARE IPPE (WELCOME TO MEDICARE)] Encounters Start End Encounter Admission Attending Care Care Encounter Source Date/Time Date/Time Type Type Clinicians Facility Department ID 2019-06-30 2019-06-30 Office FAROOQ Mann [id number] [facility] 13:39:55 15:13:50 Visit Beryl AMBULATOR [id number] Mauro Abarca [id number] of [id number] Medi vianey 375 e Results Test Description Test Time Test Comments Results Result [facility] e Comments ELECTROCARDIOGRAM 2019-06-30 Result [facility] COMPLETE 20:35:37 approved by Beryl Thao Medicine MD Pavan on 06/30/19 PROTHROMBIN TIME/INR 2019-06-21 07:10:00 Test Item Value Reference Range Interpretation Comme nts PROTIME (BEAKER) (test code = 759) 13.9 seconds 11.9-14.2 INR (BEAKER) (test code = 370) 1.1 <=5.9 Effective 11/04/2018: PT Reference Range ChangeNew: 11.9-14.2 Previous: 11.7- 14.7RECOMMENDED COUMADIN/WARFARIN INR THERAPY RANGESSTANDARD DOSE: 2.0-3.0 Includes: PROPHYLAXIS for venous thrombosis, systemic embolization; TREATMENT for venous thrombosis and/or pulmonary embolus.HIGH RISK: Target INR is2.5-3.5 for patients wiht mechanical heart valves.BASIC METABOLIC [id number] 06:05:00 Test Item Value Reference Range Interpretation Comments SODIUM (BEAKER) (test 140 meq/L 136-145 code = 381) POTASSIUM (BEAKER) 3.8 meq/L 3.5-5.1 (test code = 379) CHLORIDE (BEAKER) 108 meq/L 98-107 H (test code = 382) CO2 (BEAKER) (test 27 meq/L -29 code = 355) BLOOD UREA NITROGEN 20 mg/dL 7-21 (BEAKER) (test code = 354) CREATININE (BEAKER) 0.72 mg/dL 0.57-1.25 (test code = 358) GLUCOSE RANDOM 97 mg/dL 70-105 (BEAKER) (test code = 652) CALCIUM (BEAKER) 8.7 mg/dL 8.4-10.2 (test code = 697) EGFR (BEAKER) (test INSUFFIC IENT CLINICAL code = 1092) DATA TO CALCULA TE ESTIMATED GFR. Clinical Services Consultant ID - CHACHO MCBC W/PLT COUNT & AUTO [id number] 05:25:00 Test Item Value Reference Range Interpretation Comments WHITE BLOOD CELL COUNT (BEAKER) 9.6 K/ L 3.5-10.5 (test code = 775) RED BLOOD CELL COUNT (BEAKER) 3.67 M/ L 3.93-5.22 L (test code = 761) HEMOGLOBIN (BEAKER) (test code = 11.5 GM/DL 11.2-15.7 410) HEMATOCRIT (BEAKER) (test code = 35.1 % 34.1-44.9 411) MEAN CORPUSCULAR VOLUME (BEAKER) 95.6 fL 79.4-94.8 H (test code = 753) MEAN CORPUSCULAR HEMOGLOBIN 31.3 pg 25.6-32.2 (BEAKER) (test code = 751) MEAN CORPUSCULAR HEMOGLOBIN CONC 32.8 GM/DL 32.2-35.5 (BEAKER) (test code = 752) RED CELL DISTRIBUTION WIDTH 12.2 % 11.7-14.4 (BEAKER) (test code = 412) PLATELET COUNT (BEAKER) (test 238 K/CU MM 150-450 code = 756) MEAN PLATELET VOLUME (BEAKER) 9.3 fL 9.4-12.3 L (test code = 754) NUCLEATED RED BLOOD CELLS 0 /100 WBC 0-0 (BEAKER) (test code = 413) NEUTROPHILS RELATIVE PERCENT 64 % (BEAKER) (test code = 429) LYMPHOCYTES RELATIVE PERCENT 27 % (BEAKER) (test code = 430) MONOCYTES RELATIVE PERCENT 7 % (BEAKER) (test code = 431) EOSINOPHILS RELATIVE PERCENT 1 % (BEAKER) (test code = 432) BASOPHILS RELATIVE PERCENT 0 % (BEAKER) (test code = 437) NEUTROPHILS ABSOLUTE COUNT 6.12 K/ L 1.56-6.13 (BEAKER) (test code = 670) LYMPHOCYTES ABSOLUTE COUNT 2.61 K/ L 1.18-3.74 (BEAKER) (test code = 414) MONOCYTES ABSOLUTE COUNT (BEAKER) 0.65 K/ L 0.24-0.36 H (test code = 415) EOSINOPHILS ABSOLUTE COUNT 0.12 K/ L 0.04-0.36 (BEAKER) (test code = 416) BASOPHILS ABSOLUTE COUNT (BEAKER) 0.04 K/ L 0.01-0.08 (test code = 417) IMMATURE GRANULOCYTES-RELATIVE 0 % 0-1 PERCENT (BEAKER) (test code = 2801) URINALYSIS [id number] 17:08:00 Test Item Value Reference Range Interpretation Comments RBC UA (BEAKER) (test code = 519) < /HPF WBC UA (BEAKER) (test code = 520) 5 /HPF SQUAMOUS EPITHELIAL (BEAKER) (test 1 /HPF code = 516) CALCIUM OXALATE CRYSTALS (BEAKER) Rare (test code = 518) Clinical Services Consultant ID - techMR, MRA, NECK, WITHOUT IV [id number] 16:51:00 Anesthesia:->NoneFINAL REPORT MR, MRA, BRAIN, WITHOUT CONTRAST, MR, MRA, NECK, WITHOUT IV CONTRAST INDICATION: Stroke, follow upStroke TECHNIQUE: Multiplanar, multisequence MR images of the brain. 3-D time of flight MRA of the cranial and cervical circulation. 2-D time of flight MRA of the neck. 3D MIP angiographic post-processing was performed. Stenosis evaluation utilized NASCET criteria. COMPARISON: Prior noncontrast MRI brain FINDINGS: MRA BRAIN:Internal carotid arteries: Mild atherosclerotic narrowing of the left internal carotid artery at the junction of the distal horizontal petrousand proximal cavernous segment. Normal flow related enhancement without flow- limiting stenosisMiddle cerebral arteries: Normal flow related enhancement within the bilateral MCA M1-M2 segments without flow limiting stenosisAnterior cerebral arteries: Normal flow-related enhancement within the bilateral BRIANA A1- A2 segments without flow limiting stenosisBasilar system: Normal flow-related enhancement within the bilateral V4 segments and the basilar artery without flow-limiting stenosis Posterior cerebral arteries: Normal flow-related enhancement within the bilateral MORTG[employer] LOAN [employer]OSER P1-P2 segments without flow-limiting stenosisAdditional findings: None. MRA NECK:Common carotid arteries: Unremarkable. Bifurcations: No flow-limiting stenosis. Cervical internal carotid arteries: No flow limiting stenosis.Vertebral arteries: Origins are not well- seen. No flow limiting stenosis within the visualized cervical vertebral arterial segments. Limited assessment of the V3 segment secondary to noncontrast technique. IMPRESSION: No flow limiting stenosis in the major branch vessels of the cervical or cranial circulation. Signed: Mirian Max Verified Date/Time: 06/19/2019 16:51:48 Reading Location: [address] Neuro Reading Room MR, MRA, BRAIN, WITHOUT [id number] 16:51:00Reason for exam:- >StrokeWhat is the patient's sedation requirement?->No SedationFINAL REPORT MR, MRA, BRAIN, WITHOUT CONTRAST, MR, MRA, NECK, WITHOUT IV CONTRAST INDICATION: Stroke, follow upStroke TECHNIQUE: Multiplanar, multisequence MR images of the brain. 3-D time of flight MRA of the cranial and cervical circulation. 2-D time of flight MRA of the neck. 3D MIP angiographic post-processing was performed. Stenosis evaluation utilized NASCET criteria. COM PARISON: Prior noncontrast MRI brain FINDINGS: MRA BRAIN:Internal carotid arteries: Mild atherosclerotic narrowing of the left internal carotid artery at the junction of the distal horizontal petrousand proximal cavernous segment. Normal flow related enhancement without flow-limiting stenosisMiddle cerebral arteries: Normal flow related enhancement within the bilateral MCA M1-M2 segments without flow limiting stenosisAnterior cerebral arteries: Normal flow- related enhancement within the bilateral BRIANA A1-A2 segments without flow limiting stenosisBasilar system: Normal flow-related enhancement within the bilateral V4 segments and the basilar artery without flow-limiting stenosis Posterior cerebral arteries: Normal flow-related enhancement within the bilateral MORT[employer] LO[employer]ER P1-P2 segments without flow-limiting stenosisAdditional findings: None. MRA NECK:Common carotid arteries: Unremarkable. Bifurcations: No flow- limiting stenosis. Cervical internal carotid arteries: No flow limiting stenosis.Vertebral arteries: Origins are not well-seen. No flow limiting stenosis within the visualized cervical vertebral arterial segments. Limited assessment of the V3 segment secondary to noncontrast technique. IMPRESSION: No flow limiting stenosis in the major branch vessels of the cervical or cranial circulation. Signed: Mirian Max Verified Date/Time: 06/19/2019 16:51:48 Reading Location: [facility] C013V Neuro Reading Room URINALYSIS WITH MICROSCOPIC IF [id number] 16:15:00 Test Item Value Reference Range Interpretation Comments COLOR (BEAKER) (test code = 470) Yellow CLARITY (BEAKER) (test code = 469) Clear SPECIFIC GRAVITY UA (BEAKER) (test 1.016 1.001-1.035 code = 468) PH UA (BEAKER) (test code = 467) 6.0 5.0-8.0 PROTEIN UA (BEAKER) (test code = Negative Negative 464) GLUCOSE UA (BEAKER) (test code = Negative Negative 365) KETONES UA (BEAKER) (test code = Negative Negative 371) BILIRUBIN UA (BEAKER) (test code = Negative Negative 462) BLOOD UA (BEAKER) (test code = 461) Negative Negative NITRITE UA (BEAKER) (test code = Negative Negative 465) LEUKOCYTE ESTERASE UA (BEAKER) Large Negative A (test code = 466) UROBILINOGEN UA (BEAKER) (test code 0.2 mg/dL 0.2-1.0 = 463) SOURCE(BEAKER) (test code = 2795) Clinical Services Consultant ID - [auto]MR, BRAIN, WITHOUT [id number] 15:51:00Reason for exam:->StrokeWhat is the patient's sedation requirement?->No SedationFINAL REPORT MR, BRAIN, WITHOUT CONTRAST INDICATION: Stroke, follow upStroke TECHNIQUE: Multiplanar, multisequence MR imaging of the brain was obtained. COMPARISON: None FINDINGS: Subcentimeter acute lacunar infarct within the left parietal subcortical white matter (axial DTI image 168) with concomitant decreased signal on ADC and FLAIR hyperintensity. Brain parenchyma is otherwise normal in morphology. Midline structures are normally developed. No abnormal susceptibility.Scattered T2/FLAIR hyperintense foci within the periventricular and subcortical white matter are nonspecific, however, statistically represent chronic microvascular ischemic changes. No hydrocephalus. Orbits are within normal limits. No obstructive paranasal sinus disease. IMPRESSION: Subcentimeter acute infarct within left parietal subcortical white matter. No hemorrhagic conversion or significant mass effect. Signed: Mirian Max MDReport Verified Date/Time: 06/19/2019 15:51:35 Reading Location: [facility] C0[facility] Neuro Reading Room [id number] 15:15:00 Test Item Value Reference Range Interpretation Comments RPR SCREEN (BEAKER) (test code = Nonreactive Nonreactive 420) BASIC METABOLIC [id number] 04:49:00 Test Item Value Reference Range Interpretation Comments SODIUM (BEAKER) (test 138 meq/L 136-145 code = 381) POTASSIUM (BEAKER) 3.7 meq/L 3.5-5.1 (test code = 379) CHLORIDE (BEAKER) 107 meq/L 98-107 (test code = 382) CO2 (BEAKER) (test 24 meq/L 22-29 code = 355) BLOOD UREA NITROGEN 15 mg/dL 7-21 (BEAKER) (test code = 354) CREATININE (BEAKER) 0.77 mg/dL 0.57-1.25 (test code = 358) GLUCOSE RANDOM 163 mg/dL 70-105 H (BEAKER) (test code = 652) CALCIUM (BEAKER) 8.5 mg/dL 8.4-10.2 (test code = 697) EGFR (BEAKER) (test INSUFFIC IENT CLINICAL code = 1092) DATA TO CALCULA TE ESTIMATED GFR. Clinical Services Consultant ID - CHACHO MCBC W/PLT COUNT & AUTO [id number] 04:47:00 Test Item Value Reference Range Interpretation Comments WHITE BLOOD CELL COUNT (BEAKER) 10.9 K/ L 3.5-10.5 H (test code = 775) RED BLOOD CELL COUNT (BEAKER) 3.73 M/ L 3.93-5.22 L (test code = 761) HEMOGLOBIN (BEAKER) (test code = 11.9 GM/DL 11.2-15.7 410) HEMATOCRIT (BEAKER) (test code = 34.6 % 34.1-44.9 411) MEAN CORPUSCULAR VOLUME (BEAKER) 92.8 fL 79.4-94.8 (test code = 753) MEAN CORPUSCULAR HEMOGLOBIN 31.9 pg 25.6-32.2 (BEAKER) (test code = 751) MEAN CORPUSCULAR HEMOGLOBIN CONC 34.4 GM/DL 32.2-35.5 (BEAKER) (test code = 752) RED CELL DISTRIBUTION WIDTH 12.1 % 11.7-14.4 (BEAKER) (test code = 412) PLATELET COUNT (BEAKER) (test 324 K/CU MM 150-450 code = 756) MEAN PLATELET VOLUME (BEAKER) 9.6 fL 9.4-12.3 (test code = 754) NUCLEATED RED BLOOD CELLS 0 /100 WBC 0-0 (BEAKER) (test code = 413) NEUTROPHILS RELATIVE PERCENT 84 % (BEAKER) (test code = 429) LYMPHOCYTES RELATIVE PERCENT 12 % (BEAKER) (test code = 430) MONOCYTES RELATIVE PERCENT 4 % (BEAKER) (test code = 431) EOSINOPHILS RELATIVE PERCENT 0 % (BEAKER) (test code = 432) BASOPHILS RELATIVE PERCENT 0 % (BEAKER) (test code = 437) NEUTROPHILS ABSOLUTE COUNT 9.18 K/ L 1.56-6.13 H (BEAKER) (test code = 670) LYMPHOCYTES ABSOLUTE COUNT 1.27 K/ L 1.18-3.74 (BEAKER) (test code = 414) MONOCYTES ABSOLUTE COUNT (BEAKER) 0.39 K/ L 0.24-0.36 H (test code = 415) EOSINOPHILS ABSOLUTE COUNT 0.00 K/ L 0.04-0.36 L (BEAKER) (test code = 416) BASOPHILS ABSOLUTE COUNT (BEAKER) 0.01 K/ L 0.01-0.08 (test code = 417) IMMATURE GRANULOCYTES-RELATIVE 1 % 0-1 PERCENT (BEAKER) (test code = 2801) LIPID [id number] 04:44:00 Test Item Value Reference Range Interpretation Comments TRIGLYCERIDES (BEAKER) (test code = 76 mg/dL 540) CHOLESTEROL (BEAKER) (test code = 210 mg/dL 631) HDL CHOLESTEROL (BEAKER) (test code 49 mg/dL = 976) LDL CHOLESTEROL CALCULATED (BEAKER) 146 mg/dL (test code = 633) Triglyceride Reference Range: Low Risk <150 Borderline 150-199 High Risk 200-499 Very High Risk >=500Cholesterol Reference Range: Low Risk <200 Borderline 200-239 High Risk >240HDL Cholesterol Reference Range: Low Risk >=60 High Risk <40LDL Cholesterol Reference Range: Optimal <100 Near Optimal 100-129 Borderline 130-159 High 160-189 Very High >=190 Clinical Services Consultant ID - CHACHO MHEMOGLOBIN [id number] 16:56:00 Test Item Value Reference Range Interpretation Comments HEMOGLOBIN A1C (BEAKER) (test code = 5.2 % 4.3-6.1 368) TROPONIN [id number] 14:54:00 Test Item Value Reference Range Interpretation Comments TROPONIN I (BEAKER) (test code = 397) < ng/mL 0.00-0.03 Troponin I (TnI) levels must be interpreted in the context of the presenting symptoms and the clinical findings. Elevated TnI levels indicate myocardial damage, but are not specific for ischemic heart disease. Elevated TnI levels are seen in patients with other cardiac conditions (including myocarditis and congestive heart failure), and slight TnI elevations occur in patients with other conditions, including sepsis, renal failure, acidosis, acute neurological disease, and persistent tachyarrhythmia.Clinical Services Consultant ID - NTPBASIC METABOLIC PANEL 2019-06-18 14:48:00 Test Item Value Reference Range Interpretation Comments SODIUM (BEAKER) (test 139 meq/L 136-145 code = 381) POTASSIUM (BEAKER) 4.6 meq/L 3.5-5.1 Specimen moderately (test code = 379) hemolyzed CHLORIDE (BEAKER) 104 meq/L 98-107 (test code = 382) CO2 (BEAKER) (test 27 meq/L 22-29 code = 355) BLOOD UREA NITROGEN 13 mg/dL 7-21 (BEAKER) (test code = 354) CREATININE (BEAKER) 0.83 mg/dL 0.57-1.25 Specimen moderately (test code = 358) hemolyzed GLUCOSE RANDOM 127 mg/dL 70-105 H (BEAKER) (test code = 652) CALCIUM (BEAKER) 9.4 mg/dL 8.4-10.2 (test code = 697) EGFR (BEAKER) (test INSUFFIC IENT CLINICAL code = 1092) DATA TO CALCULA TE ESTIMATED GFR. Clinical Services Consultant ID - NTPCBC W/PLT COUNT & AUTO [id number] 14:35:00 Test Item Value Reference Range Interpretation Comments WHITE BLOOD CELL COUNT (BEAKER) 8.4 K/ L 3.5-10.5 (test code = 775) RED BLOOD CELL COUNT (BEAKER) 4.25 M/ L 3.93-5.22 (test code = 761) HEMOGLOBIN (BEAKER) (test code = 13.0 GM/DL 11.2-15.7 410) HEMATOCRIT (BEAKER) (test code = 39.2 % 34.1-44.9 411) MEAN CORPUSCULAR VOLUME (BEAKER) 92.2 fL 79.4-94.8 (test code = 753) MEAN CORPUSCULAR HEMOGLOBIN 30.6 pg 25.6-32.2 (BEAKER) (test code = 751) MEAN CORPUSCULAR HEMOGLOBIN CONC 33.2 GM/DL 32.2-35.5 (BEAKER) (test code = 752) RED CELL DISTRIBUTION WIDTH 11.9 % 11.7-14.4 (BEAKER) (test code = 412) PLATELET COUNT (BEAKER) (test 304 K/CU MM 150-450 code = 756) MEAN PLATELET VOLUME (BEAKER) 9.3 fL 9.4-12.3 L (test code = 754) NUCLEATED RED BLOOD CELLS 0 /100 WBC 0-0 (BEAKER) (test code = 413) NEUTROPHILS RELATIVE PERCENT 87 % (BEAKER) (test code = 429) LYMPHOCYTES RELATIVE PERCENT 12 % (BEAKER) (test code = 430) MONOCYTES RELATIVE PERCENT 1 % (BEAKER) (test code = 431) EOSINOPHILS RELATIVE PERCENT 0 % (BEAKER) (test code = 432) BASOPHILS RELATIVE PERCENT 0 % (BEAKER) (test code = 437) NEUTROPHILS ABSOLUTE COUNT 7.30 K/ L 1.56-6.13 H (BEAKER) (test code = 670) LYMPHOCYTES ABSOLUTE COUNT 0.97 K/ L 1.18-3.74 L (BEAKER) (test code = 414) MONOCYTES ABSOLUTE COUNT (BEAKER) 0.08 K/ L 0.24-0.36 L (test code = 415) EOSINOPHILS ABSOLUTE COUNT 0.01 K/ L 0.04-0.36 L (BEAKER) (test code = 416) BASOPHILS ABSOLUTE COUNT (BEAKER) 0.03 K/ L 0.01-0.08 (test code = 417) IMMATURE GRANULOCYTES-RELATIVE 1 % 0-1 PERCENT (BEAKER) (test code = 2801)
== END 2021-12-26 20:00 | disposition home or self-care (01) ==
LOC: ER 15:50
DX: R11.2 Nausea with vomiting, unspecified (principal); R10.9 Unspecified abdominal pain; I10 Essential (primary) hypertension
CPT/HCPCS: 85025; 36415; 81003; 83690; 80053; 74177; Q9967; J7040; J2405

== ENCOUNTER 2023-07-16 17:36 | Inpatient (IN) | payer OTHER ==
[2023-07-16 19:30] LABS: Protime INR 1.12
[2023-07-16] MEDS ORDERED: NA CHLORIDE 0.9% 250 ML ONE (19:30)
[2023-07-16] MEDS ORDERED: NA CHLORIDE 0.9% 2,000 ML ONE (19:30)
[2023-07-16] MEDS ORDERED: PANTOPRAZOLE 40 MG INJ ONE (19:30)
[2023-07-16 19:38] LABS: Absolute Lymphocytes (CBC) 1.4 K/uL (0.7-4.9); Hematocrit 26.6 % (36.0-45.0); Lymphocytes % 14.4 % (15.3-44.8); MCV 78.4 fL (80-100); MPV 7.4 fL (7.6-11.3); Platelets 455 thou/uL (152-406); RBC Red Blood Cell Count 3.39 M/uL (3.86-4.86)
[2023-07-16 19:45] LABS: ALT/SGPT 16 U/L (13-56); Albumin 3.4 g/dL (3.4-5.0); Alkaline Phosphatase 68 U/L (45-117); BUN Blood Urea Nitrogen 23 mg/dL (7-18); Bicarbonate 31 mEq/L (21-32); Bilirubin Total 0.3 mg/dL (0.2-1.0); Glomerular Filtration Rate 71 ml/min (=/>90); Glucose Level 113 mg/dL (74-106); Lipase 8 U/L (13-75); NT PRO-BNP 765 pg/mL (<450); Protein, Total 7.5 g/dL (6.4-8.2); Sodium Level 139 mEq/L (136-145)
--- NOTE | 2023-07-16 19:48 | RAD REPORT ---
EXAM DESCRIPTION: [place] Single View07/16/2023 7:33 pm CLINICAL HISTORY: COUGH COMPARISON: Chest Single View dated 06/18/2019; Spine Lumbar Wo Con dated 02/26/2022 TECHNIQUE: Portable AP view of the chest. FINDINGS: The lungs are clear. Decreased inspiratory effort limits evaluation No pneumothorax or eff usion. The cardiomediastinal contours are unremarkable. IMPRESSION: No acute cardiopulmonary process.
[2023-07-16 19:53] LABS: AST/SGOT 26 U/L (15-37); Bilirubin Direct < 0.1 mg/dL (0-0.2); Bilirubin Indirect, Calculated ND mg/dL (0.2-0.8); Potassium 3.3 mEq/L (3.5-5.1)
--- NOTE | 2023-07-16 21:05 | ER ---
Nurse's Notes [facility] Name: Brii Greco Age: 73 yrs Sex: Female : 1950 Arrival Date: 07/16/2023 Time: 17:36 Bed 15 Private MD: Diagnosis: GI Bleed/ Gastrointestinal hemorrhage, unspecified-hgb 8.7;Anemia, unspecified;Vomiting;Hypokalemia Presentation: 07/16 17:55 Chief complaint: Patient states: sent over from Dr Daniels office for blood transfusion. ko1 Patient has been throwing up blood (dark red) since about 0300 this morning. Not on blood thinners. Coronavirus screen: At this time, the client does not indicate any symptoms associated with coronavirus-19. Ebola Screen: No symptoms or risks identified at this time. Initial Sepsis Screen: Does the patient meet any 2 criteria? No. Patient's initial sepsis screen is negative. Does the patient have a suspected source of infection? No. Patient's initial sepsis screen is negative. Risk Assessment: Do you want to hurt yourself or someone else? Patient reports no desire to harm self or others. Onset of symptoms was July 16, 2023. 17:55 Method Of Arrival: Wheelchair ko1 17:55 Acuity: ASHLY 3 ko1 Triage Assessment: 17:57 General: Appears in no apparent distress. Behavior is calm, cooperative, appropriate ko1 for age. Pain: Denies pain. EENT:. Historical: - Allergies: 17:57 No Known Allergies; ko1 - PMHx: 17:57 Anxiety; COPD; Hypertension; ko1 - PSHx: 17:57 None; ko1 - Immunization history:: Adult Immunizations up to date. - Social history:: Smoking status: Patient denies any tobacco usage or history of. - Family history:: not pertinent. Screenin:47 [facility] ED Fall Risk Assessment (Adult) History of falling in the last 3 months, bp including since admission No falls in past 3 months (0 pts). Abuse screen: Denies threats or abuse. Denies injuries from another. Nutritional screening: No deficits noted. Tuberculosis screening: No symptoms or risk factors identified. Assessment: 18:00 General: SEE TRIAGE NOTE. bp 19:00 Reassessment: PT CONSENTED FOR PRBC TRANSFUSION. T\\T\\S PENDING. bp 22:00 Reassessment: ELIZABETH Solomon states " blood transfusion will not be given due to Hemoglobin ha1 level as instructed by Dr. Andersen. Hemoglobin levels will need to be continue to be monitored.". 23:40 Reassessment: report given to ELIZABETH Adams .Transfer to room pending due to elevated blood ha1 pressure. Notified Dr. Rogel of elevated blood pressure. Vital Signs: 17:55 BP 141 / 79; Pulse 112; Resp 17; Temp 98.3; Pulse Ox 98% ; ko1 19:45 BP 209 / 102; Pulse 105; Resp 18; Pulse Ox 95% ; bp 20:57 BP 191 / 106; Pulse 106; Resp 16; Pulse Ox 95% ; bp 23:41 BP 191 / 93; Pulse 107; Resp 17 S; Pulse Ox 97% on R/A; ha1 07/17 00:12 BP 149 / 99; Pulse 102; Resp 20 S; Temp 97.9; Pulse Ox 96% on R/A; ha1 ED Course: 07/16 17:40 Patient arrived in ED. mg5 17:57 Triage completed. ko1 17:57 Arm band placed on right wrist. Patient placed in waiting room, Patient notified of ko1 wait time. 18:35 Marcos Andersen MD is Attending Physician. mira 18:59 Doni Paredes, ELIZABETH is Primary Nurse. bp 19:17 Inserted saline lock: 22 gauge in left antecubital area, using aseptic technique. Blood rv1 collected. 19:17 Bb Add On Sent. rv1 19:17 Type And Screen Sent. rv1 19:17 Lipase Sent. rv1 19:17 Basic Metabolic Panel Sent. rv1 19:17 CBC with Diff Sent. rv1 19:17 LFT's Sent. rv1 19:17 Magnesium Sent. rv1 19:17 NT PRO-BNP Sent. rv1 19:17 PT-INR Sent. rv1 19:17 Troponin HS Sent. rv1 19:35 XRAY Chest (1 view) In Process Unspecified. EDMS 19:47 Patient has correct armband on for positive identification. bp 21:03 Sanket Rogel MD is Hospitalizing Provider. mira 21:45 Urinalysis w/ reflexes Sent. kmf 22:00 Report received from ELIZABETH Solomon. ha1 23:40 Provided Education on: need for admit . 1 23:40 No provider procedures requiring assistance completed. Patient admitted, IV remains in ha1 place. Administered Medications: 21:09 Discontinued: ns 0.9% 1000 ml IV at 125 ml/hr continuous mira 19:30 Drug: Pantoprazole IVP 80 mg IVP once Route: IVP; Site: left antecubital; bp 19:30 Drug: Pantoprazole IV 8 mg/hr IV at 25 ml/hr continuous; (Standard dilution is 80 mg in bp 250 mL NS) Route: IV; Rate: 25 ml/hr; Site: left antecubital; 19:30 Drug: NS 0.9% IV 1000 ml IV at 1 bolus Per protocol; 1000 mL bolus Route: IV; Rate: 1 bp bolus; Site: left antecubital; 19:30 Drug: NS 0.9% IV 1000 ml IV at 125 ml/hr continuous Route: IV; Rate: 125 ml/hr; Site: bp left antecubital; 21:30 Drug: NS 0.9% with KCl IV 20 mEq/L 1000 ml IV at 125 ml/hr continuous Route: IV; Rate: bp 125 ml/hr; Site: right hand; Medication: 23:40 VIS not applicable for this client. 1 Outcome: 21:04 Decision to Hospitalize by Provider. mira 23:41 Admitted to Tele accompanied by tech, via stretcher, with chart, 1 23:41 Condition: stable 07/17 00:31 Patient left the ED. [facility] Signatures: Dispatcher [employer] Marcos Edouard MD MD cha Peltier, Brian, RN RN bp Ayala, Heidy, RN RN [facility] Nuha Hernadez RN RN olimpia Kari Whitaker [facility] Massiel Martínez 5 Raine Fofana [facility] Corrections: (The following items were deleted from the chart) 07/16 21:10 20:57 Pulse 106bpm; Resp 16bpm; Pulse Ox 95%; bp bp 07/17 00:16 07 23:40 Reassessment: report given to ELIZABETH Adams 1 1 07/17 00:31 07/16 22:00 Reassessment: ELIZABETH Solomon states " blood transfusion will not be given due to 1 Hemoglobin level as instructed by Dr. Andersen. ha1
--- NOTE | 2023-07-16 21:05 | EDPHYS ---
Physician Documentation [facility] Name: Brii Greco Age: 73 yrs Sex: Female : 1950 Arrival Date: 07/16/2023 Time: 17:36 Bed 15 Private MD: ED Physician Marcos Andersen HPI: 07/16 20:57 This 73 yrs old Female presents to ER via Wheelchair with complaints of Blood.mira 20:57 The patient presents with abdominal distention in the upper abdomen. Onset: The mira symptoms/episode began/occurred this morning. The patient presents to the emergency department vomiting blood, a moderate amount, coffee grounds in nature, with multiple such episodes. Onset: The symptoms/episode began/occurred this morning. Abdominal pain: none is appreciated. Modifying factors: The symptoms are alleviated by nothing, the symptoms are aggravated by nothing. Associated signs and symptoms: Pertinent positives: dizziness when standing, vomiting. The symptoms do not radiate. Associated signs and symptoms: Pertinent positives: nausea and vomiting, palpitations, vomiting, vomiting blood. Modifying factors: The symptoms are alleviated by nothing, the symptoms are aggravated by nothing. Historical: - Allergies: 17:57 No Known Allergies; ko1 - PMHx: 17:57 Anxiety; COPD; Hypertension; ko1 - PSHx: 17:57 None; ko1 - Immunization history:: Adult Immunizations up to date. - Social history:: Smoking status: Patient denies any tobacco usage or history of. - Family history:: not pertinent. ROS: 20:57 Constitutional: Negative for fever, chills, and weight loss, Eyes: Negative for injury, mira pain, redness, and discharge, ENT: Negative for injury, pain, and discharge, Neck: Negative for injury, pain, and swelling, Cardiovascular: Negative for chest pain, palpitations, and edema, Respiratory: Negative for shortness of breath, cough, wheezing, and pleuritic chest pain, Back: Negative for injury and pain, : Negative for injury, bleeding, discharge, and swelling, MS/Extremity: Negative for injury and deformity, Neuro: Negative for headache, weakness, numbness, tingling, and seizure, Psych: Negative for depression, anxiety, suicide ideation, homicidal ideation, and hallucinations, Allergy/Immunology: Negative for hives, rash, and allergies, Endocrine: Negative for neck swelling, polydipsia, polyuria, polyphagia, and marked weight changes, Hematologic/Lymphatic: Negative for swollen nodes, abnormal bleeding, and unusual bruising, 20:57 Abdomen/GI: Positive for abdominal pain, nausea and vomiting, abdominal cramps, hematemesis, of the epigastric area, right upper quadrant and left upper quadrant, Exam: 20:57 Constitutional: This is a well developed, well nourished patient who is awake, alert, mira and in no acute distress. Head/Face: Normocephalic, atraumatic. Eyes: Pupils equal round and reactive to light, extra-ocular motions intact. Lids and lashes normal. Conjunctiva and sclera are non-icteric and not injected. Cornea within normal limits. Periorbital areas with no swelling, redness, or edema. ENT: Nares patent. No nasal discharge, no septal abnormalities noted. Tympanic membranes are normal and external auditory canals are clear. Oropharynx with no redness, swelling, or masses, exudates, or evidence of obstruction, uvula midline. Mucous membranes moist. Neck: Trachea midline, no thyromegaly or masses palpated, and no cervical lymphadenopathy. Supple, full range of motion without nuchal rigidity, or vertebral point tenderness. No Meningismus. Chest/axilla: Normal chest wall appearance and motion. Nontender with no deformity. No lesions are appreciated. Respiratory: Lungs have equal breath sounds bilaterally, clear to auscultation and percussion. No rales, rhonchi or wheezes noted. No increased work of breathing, no retractions or nasal flaring. Abdomen/GI: Soft, non-tender, with normal bowel sounds. No distension or tympany. No guarding or rebound. No evidence of tenderness throughout. Back: No spinal tenderness. No costovertebral tenderness. Full range of motion. Female : Normal external genitalia. MS/ Extremity: Pulses equal, no cyanosis. Neurovascular intact. Full, normal range of motion. Neuro: Awake and alert, GCS 15, oriented to person, place, time, and situation. Cranial nerves II-XII grossly intact. Motor strength 5/5 in all extremities. Sensory grossly intact. Cerebellar exam normal. Normal gait. Psych: Awake, alert, with orientation to person, place and time. Behavior, mood, and affect are within normal limits. 20:57 Cardiovascular: Rate: tachycardic, actual rate is 106 bpm, Rhythm: regular, Pulses: Pulses are 4+ in bilateral radial, brachial, femoral, popliteal, posterior tibial and and dorsalis pedis arteries.. Heart sounds: normal, Edema: is not appreciated, JVD: is not appreciated, 20:57 ECG was reviewed by the Attending Physician. Vital Signs: 17:55 BP 141 / 79; Pulse 112; Resp 17; Temp 98.3; Pulse Ox 98% ; ko1 19:45 BP 209 / 102; Pulse 105; Resp 18; Pulse Ox 95% ; bp 20:57 BP 191 / 106; Pulse 106; Resp 16; Pulse Ox 95% ; bp 23:41 BP 191 / 93; Pulse 107; Resp 17 S; Pulse Ox 97% on R/A; ha1 07/17 00:12 BP 149 / 99; Pulse 102; Resp 20 S; Temp 97.9; Pulse Ox 96% on R/A; ha1 MDM: 07/16 18:35 Patient medically screened. mira 21:01 Differential diagnosis: gastritis, hemorrhagic shock, varices, bowel obstruction, mira gastritis, gastroesophageal reflux disease, GI Bleed, non-specific abd pain, pancreatitis, Peptic Ulcer Disease, Perf. Duodenal Ulcer, Perf. Gastric Ulcer, Ureterolithiasis, urinary tract infection. Data reviewed: vital signs, nurses notes, EMS record, lab test result(s), EKG, radiologic studies, plain films. Consideration of Admission/Observation Patient was admitted/placed on observation. Escalation of care including admission/observation considered. I considered the following discharge prescriptions or medication management in the emergency department Medications were administered in the Emergency Department. See MAR. Independent interpretation of the following test(s) in the Emergency Department EKG: See my EKG interpretation above. Test considered but Not performed: Ultrasound no abd usg. Historians other than the Patient: Daughter/Son: daughter well informed. Care significantly affected by the following chronic conditions: Hypertension, Chronic Obstructive Pulmonary Disease, Obesity, anxiety. Counseling: I had a detailed discussion with the patient and/or guardian regarding the historical points, exam findings, and any diagnostic results supporting the discharge/admit diagnosis, the presence of at least one elevated blood pressure reading (>120/80) during this emergency department visit, lab results, radiology results, the need for further work-up and treatment in the hospital. 07/16 18:39 Order name: Basic Metabolic Panel; Complete Time: 20:49 [facility] 07/16 18:39 Order name: CBC with Diff; Complete Time: 20:49 [facility] 07/16 18:39 Order name: LFT's; Complete Time: 20:49 [facility] 07/16 18:39 Order name: Magnesium; Complete Time: 20:49 [facility] 07/16 18:39 Order name: NT PRO-BNP; Complete Time: 20:49 [facility] 07/16 18:39 Order name: PT-INR; Complete Time: 19:36 [facility] 07/16 18:39 Order name: Troponin HS; Complete Time: 20:49 [facility] 07/16 18:39 Order name: Urinalysis w/ reflexes [facility] 07/16 18:39 Order name: Lipase; Complete Time: 20:49 [facility] 07/16 18:39 Order name: Type And Screen [facility] 07/16 18:43 Order name: Bb Add On bd 07/16 19:01 Order name: Packed RBC Leukored [facility] 07/16 20:56 Order name: ABO/RH no charge [facility] 07/16 21:22 Order name: Hemoglobin [facility] 07/16 21:22 Order name: Hemoglobin [facility] 07/16 21:22 Order name: Hemoglobin [facility] 07/16 21:22 Order name: Hemoglobin [facility] 07/16 21:22 Order name: Hemoglobin [facility] 07/16 18:39 Order name: XRAY Chest (1 view); Complete Time: 20:49 [facility] 07/16 18:39 Order name: EKG; Complete Time: 18:40 [facility] 07/16 21:20 Order name: CONS Physician Consult [facility] 07/16 18:39 Order name: Cardiac monitoring; Complete Time: 19:21 [facility] 07/16 18:39 Order name: EKG - Nurse/Tech; Complete Time: 20:51 [facility] 07/16 18:39 Order name: IV Saline Lock; Complete Time: 19:17 [facility] 07/16 18:39 Order name: Labs collected and sent; Complete Time: 19:21 [facility] 07/16 18:39 Order name: O2 Per Protocol; Complete Time: 19:02 [facility] 07/16 18:39 Order name: O2 Sat Monitoring; Complete Time: 19:02 [facility] 07/16 18:39 Order name: IV Saline Lock - Large Bore; Complete Time: 19:20 [facility] EC:57 Rate is 105 beats/min. Rhythm is regular. QRS [place] is Normal. [place] interval is normal. mira QRS interval is normal. QT interval is prolonged at 528 msec. No Q waves. T waves are Normal. No ST changes noted. Clinical impression: NSR w/ Non-specific ST/T Changes and No evidence of ischemia. Interpreted by me. Reviewed by me. Administered Medications: 21:09 Discontinued: ns 0.9% 1000 ml IV at 125 ml/hr continuous mira 19:30 Drug: Pantoprazole IVP 80 mg IVP once Route: IVP; Site: left antecubital; bp 19:30 Drug: Pantoprazole IV 8 mg/hr IV at 25 ml/hr continuous; (Standard dilution is 80 mg in bp 250 mL NS) Route: IV; Rate: 25 ml/hr; Site: left antecubital; 19:30 Drug: NS 0.9% IV 1000 ml IV at 1 bolus Per protocol; 1000 mL bolus Route: IV; Rate: 1 bp bolus; Site: left antecubital; 19:30 Drug: NS 0.9% IV 1000 ml IV at 125 ml/hr continuous Route: IV; Rate: 125 ml/hr; Site: bp left antecubital; 21:30 Drug: NS 0.9% with KCl IV 20 mEq/L 1000 ml IV at 125 ml/hr continuous Route: IV; Rate: bp 125 ml/hr; Site: right hand; Disposition Summary: 07/16/23 21:04 Hospitalization Ordered Notes: Hospitalization Status: Inpatient Admission mira Provider: Sanket Rogel cha Location: Telemetry/MedSurg (Inpatient) mira Condition: Fair mira Problem: new mira Symptoms: have improved mira Bed/Room Type: Standard mira Room Assignment: 409(07/16/23 23:22) Diagnosis - GI Bleed/ Gastrointestinal hemorrhage, unspecified - hgb 8.7 mira - Anemia, unspecified mira - Vomiting mira - Hypokalemia mira Forms: - Medication Reconciliation Form mira - SBAR form mira - Leadership Thank You Letter mira Signatures: Dispatcher [employer] Sima Lucero RN RN kl Anderson, Corey, MD MD cha Peltier, Brian, RN RN bp Oliver, Kathy, RN RN ko1 Corrections: (The following items were deleted from the chart) 19:00 18:40 PACKED RBC LEUKORED+[id number].LAB.BRZ ordered. EDMS EDMS 19:00 18:44 ABO/RH typing ordered. EDMS EDMS 19:00 18:44 Antibody Screen ordered. EDMS EDMS 23:22 21:04 mira bullock 07/17 00:29 07/16 18:39 Blood Transfusion Consent ordered. mira ha1
[2023-07-16] MEDS ORDERED: NS KCL 20MEQ 1,000 ML IV ONE (21:14)
[2023-07-16] MEDS ORDERED: ONDANSETRON 4 MG/2 ML VIAL IV PRN (21:15)
--- NOTE | 2023-07-16 21:32 | P.HP ---
Certification for Inpatient Patient admitted to: Observation With expected LOS: <2 Midnights Practitioner: I am a practitioner with admitting privileges, knowledge of patient current condition, hospital course, and medical plan of care. Services: Services provided to patient in accordance with Admission requirements found in Title 42 Section 412.3 of the Code of Federal Regulations Patient History Date of Service: 07/17/23 Reason for admission: GI bleed. History of Present Illness: 73-year-old female patient with past medical history significant for hypertension, hyperlipidemia, anxiety disorder was evaluated for episode of vomiting blood. She reported multiple episode of vomiting of blood and abdominal bloating. No syncope reported. No chest pain reported. She is not on oral anticoagulation medication. She was found to have a hemoglobin 8.7 and was started on IV acetaminophen and type and screen for blood as possible transfusion. She was admitted for inpatient care for gastroenterology management recommendations. Allergies No Known Allergies Allergy (Unverified 07/16/23 23:47) Home Medications: Alprazolam [Xanax] 1 mg PO BEDTIME 07/17/23 Carvedilol [Coreg] 25 mg PO BID 07/17/23 Clonidine HCl [Catapres*] 0.2 mg PO BID 07/17/23 Losartan Potassium 25 mg PO DAILY 07/17/23 Ondansetron [Zofran (Odt)*] 4 mg PO PRN PRN 07/17/23 Oxycodone HCl/Acetaminophen [Oxycodon-Acetaminophen 7.5-300] 1 each PO BID 07/17/23 Trazodone HCl [Desyrel] 200 mg PO BEDTIME 07/17/23 Review of Systems General: Malaise Eyes: Unremarkable ENT: Unremarkable Respiratory: Unremarkable Cardiovascular: Unremarkable Gastrointestinal: As per HPI Genitourinary: Unremarkable Musculoskeletal: Unremarkable Integumentary: Unremarkable Neurological: Unremarkable Lymphatics: Unremarkable Physical Examination - Physical Exam General: Alert, Oriented x3 HEENT: Atraumatic Neck: Supple Respiratory: Normal air movement Cardiovascular: Regular rate/rhythm, Normal S1 S2 Gastrointestinal: Soft and benign Musculoskeletal: No swelling Neurological: Normal speech, Normal strength at 5/5 x4 extr - Studies Laboratory Data (last 24 hrs) 07/16/23 07/16/23 07/16/23 19:09 19:09 19:09 WBC 9.80 Hgb 8.7 L Hct 26.6 L Plt Count 455 H PT 12.3 INR 1.12 Sodium 139 Potassium 3.3 L BUN 23 H Creatinine 0.85 Glucose 113 H Magnesium 2.0 Total Bilirubin 0.3 AST 26 ALT 16 Alkaline Phosphatase 68 Lipase 8 L Assessment and Plan - Plan GI bleed: Patient has been vomiting blood. Globin is trending down despite supportive care. Continue pantoprazole drip, type and screen and transfuse for hemoglobin less than 7. Will have the gastroenterology evaluate for EGD. Severe anemia: Due to blood loss from GI bleed. Will continue to trend hemoglobin every 6. Transfuse for hemoglobin less than 7. PPI therapy continued. Hypertension: We will monitor vital signs per unit protocol and continue outpatient antihypertensive medications. Prophylaxis: SCDs for DVT prophylaxis due to GI bleed CODE STATUS: Full code Disposition: We will treat her multiple medical issues including GI bleed and severe anemia and she will discharge once cleared by gastroenterology service. - Advance Directives Does patient have a Living Will: No Does patient have a Durable POA for Healthcare: No
[2023-07-16] MEDS: NA CHLORIDE 0.9% 1,000 ML IV SCH (22:00)
[2023-07-16 22:20] LABS: Renal Epithelial <5 /HPF (None Seen); Specific Gravity 1.016 (1.005-1.030); Urine Bacteria <20 /HPF (<20); Urine Bilirubin NEGATIVE (Negative); Urine Blood Negative (Negative); Urine Clarity Extremely Turbid (Clear); Urine Color Light-Yellow (Yellow); Urine Glucose NEGATIVE (Negative); Urine Protein TRACE (Negative); Urine RBC <5 /HPF (None Seen); Urine Urobilinogen Normal (Normal); Urine pH 7.5 (5.0-7.0)
[2023-07-16] MEDS: METOPROLOL TARTRATE 5 MG/5 ML INJ IV STA (23:48)
[2023-07-16] MEDS ORDERED: METOPROLOL TARTRATE 5 MG/5 ML INJ IV ONE (23:53)
[2023-07-16] MEDS ORDERED: NA CHLORIDE 0.9% 1,000 ML ONE (23:53)
[2023-07-17] MEDS: PANTOPRAZOLE 40 MG INJ IVP SCH (01:01)
[2023-07-17] MEDS ORDERED: SODIUM CHLORIDE 0.9% 10ML INJ IV PRN (01:01)
[2023-07-17 01:02] VITALS: BMI 25.7
[2023-07-17] MEDS: NA CHLORIDE 0.9% 250 ML ONE (02:21)
[2023-07-17] MEDS: PANTOPRAZOLE INJ 80 MG in NA CHLORIDE 0.9% 250 ML IV SCH ×2 (06:00→12:00)
[2023-07-17] MEDS: SUCRALFATE 1 GM TABLET PO SCH (08:15)
--- NOTE | 2023-07-17 08:29 | P.PN ---
Subjective Date of Service: 07/17/23 Chief Complaint: GI bleed. Soft formed stool overnight, reports abdominal pain, will add as needed analgesics - Physical Exam General: Alert, Oriented x3 HEENT: Atraumatic Neck: Supple Respiratory: Normal air movement Cardiovascular: Regular rate/rhythm, Normal S1 S2 Gastrointestinal: Soft and benign, positive for generalized abdominal tenderness, no rebound Musculoskeletal: No swelling Neurological: Normal speech, Normal strength at 5/5 x4 extr Review of Systems per HPI Physical Examination - Vital Signs Temperature: 97.2 F Blood Pressure: 154/79 Pulse: 100 Respirations: 17 Pulse Ox (%): 92 - Studies Laboratory Data (last 24 hrs) 07/16/23 07/16/23 07/16/23 19:09 19:09 19:09 WBC 9.80 Hgb 8.7 L Hct 26.6 L Plt Count 455 H PT 12.3 INR 1.12 Sodium 139 Potassium 3.3 L BUN 23 H Creatinine 0.85 Glucose 113 H Magnesium 2.0 Total Bilirubin 0.3 AST 26 ALT 16 Alkaline Phosphatase 68 Lipase 8 L Assessment And Plan - Plan Assessment plan GI bleed, hematemesis Type and cross, GI consult, keep n.p.o. As needed analgesics, PPI Acute cystitis no hematuria IV antibiotics IV fluid Microcytic anemia 7.1/ 26.6 trend H&H, repeat H&H 8.2 Place less than 7 Serial H&H Hypertension Resume appropriate home meds, as needed antihypertensive Hypokalemia Trend electrolytes replace as needed DVT SCDs Full code Diet n.p.o. Disposition Home Discharge Plan: Home - Code Status/Comfort Care Code Status: Full Code Critical Care: No Time Spent Managing PTS Care (In Minutes): 35
[2023-07-17 08:46] LABS: Hematocrit 24.4 % (36.0-45.0)
[2023-07-17] MEDS: HYDROMORPHONE HCL 0.5 MG/0.5 ML INJ IV PRN (09:08)
[2023-07-17] MEDS: PIPER TAZO 3.375 GM in NA CHLORIDE 0.9% 100 ML IV SCH (09:35)
[2023-07-17] MEDS: KCL 20 MEQ/100 mL IVPB 20 MEQ/100 ML BAG IV SCH (10:34)
--- NOTE | 2023-07-17 13:00 | P.DS ---
Admission Date: 07/17/23 Discharge Date: 07/18/23 Disposition: ROUTINE DISCHARGE Discharge Condition: FAIR Reason for Admission: GI bleed. Brief History of Present Illness: 73-year-old female patient with past medical history significant for hypertension, hyperlipidemia, anxiety disorder was evaluated for episode of vomiting blood. She reported multiple episode of vomiting of blood and abdominal bloating. No syncope reported. No chest pain reported. She is not on oral anticoagulation medication. She was found to have a hemoglobin 8.7 and was started on IV acetaminophen and type and screen for blood as possible transfusion. She was admitted for inpatient care for gastroenterology management recommendations. - Physical Exam General: Alert, Oriented x3 HEENT: Atraumatic Neck: Supple Respiratory: Normal air movement Cardiovascular: Regular rate/rhythm, Normal S1 S2 Gastrointestinal: Soft and benign Musculoskeletal: No swelling Neurological: Normal speech, Normal strength at 5/5 x4 extr Hospital Course: 73year-old female patient presented with hematemesis x 1. Was noted to have GI bleeding, with anemia. Condition improved with transfused with 1 unit of packed packed red blood cells, type and cross. IV pain medications. Was evaluated by GI. Patient tolerating diet, stable for discharge to home with follow-up appointment with primary care physician. PROBLEM: Suspected GI bleed, Anemia, Abdominal pain Constipation Received 1 unit of packed red blood cells Status post EGD-large hiatal hernia, Follow-up with Dr. Card GI Avoid NSAIDs, Daily PPI, as needed. Continue home medicines as previously prescribed GOAL: Clear understanding of disease process INSTRUCTIONS: Physician Discharge Instructions: -DC IV and DC home -Follow-up with PCP in 1 to 2 weeks -Please call Dr. Palm at [phone] if any questions regarding hospital stay -Please call nursing station at [phone] if any nursing or medication questions -Return to the emergency room if symptoms worsen Diet: ADA, low sodium Activity: Fall precautions DME: Date Ordered: Name of Company: [employer] Services Needed: None Date or Referral: IMMUNIZATION Influenza Vaccine Indicated: Influenza Vaccine Given: Date Given: Pneumonia Vaccine Indicated: Pneumonia Vaccine Given: Date Given Vital Signs/Physical Exam: Temp Pulse Resp BP Pulse Ox 97.2 F 100 H 17 154/79 H 92 07/17/23 12:57 07/17/23 12:57 07/17/23 12:57 07/17/23 12:57 07/17/23 12:57 Laboratory Data at Discharge: WBC 9.80 thou/uL (4.3-10.9) 07/16/23 19:09 Hgb Cancelled 07/17/23 12:00 Hct 24.4 % (36.0-45.0) L 07/17/23 08:30 Plt Count 455 thou/uL (152-406) H 07/16/23 19:09 PT 12.3 SECONDS (9.5-12.5) 07/16/23 19:09 INR 1.12 07/16/23 19:09 Sodium 139 mEq/L (136-145) 07/16/23 19:09 Potassium 3.3 mEq/L (3.5-5.1) L 07/16/23 19:09 BUN 23 mg/dL (7-18) H 07/16/23 19:09 Creatinine 0.85 mg/dL (0.55-1.02) 07/16/23 19:09 Glucose 113 mg/dL (74-106) H 07/16/23 19:09 Magnesium 2.0 mg/dL (1.6-2.4) 07/16/23 19:09 Total Bilirubin 0.3 mg/dL (0.2-1.0) 07/16/23 19:09 AST 26 U/L (15-37) 07/16/23 19:09 ALT 16 U/L (13-56) 07/16/23 19:09 Alkaline Phosphatase 68 U/L (45-117) 07/16/23 19:09 Lipase 8 U/L (13-75) L 07/16/23 19:09 Home Medications: Alprazolam [Xanax] 1 mg PO BEDTIME 07/17/23 Carvedilol [Coreg] 25 mg PO BID 07/17/23 Clonidine HCl [Catapres*] 0.2 mg PO BID 07/17/23 Losartan Potassium 25 mg PO DAILY 07/17/23 Ondansetron [Zofran (Odt)*] 4 mg PO PRN PRN 07/17/23 Oxycodone HCl/Acetaminophen [Oxycodon-Acetaminophen 7.5-300] 1 each PO BID 07/17/23 Trazodone HCl [Desyrel] 200 mg PO BEDTIME 07/17/23 Hydralazine [Apresoline*] 25 mg PO TID #90 tab 07/18/23 Metoclopramide HCl [Reglan] 5 mg PO ACHS #120 tab 07/18/23 Senosides [Senokot*] 8.6 mg PO DAILY PRN #30 tab 07/18/23 Sucralfate [Carafate*] 1 gm PO ACHS #120 tab 07/18/23 New Medications: Hydralazine [Apresoline*] 25 mg PO TID #90 tab Sucralfate [Carafate*] 1 gm PO ACHS #120 tab Metoclopramide HCl [Reglan] 5 mg PO ACHS #120 tab Senosides [Senokot*] 8.6 mg PO DAILY PRN #30 tab PRN Reason: Constipation Physician Discharge Instructions: -DC IV and DC home -Follow-up with PCP in 1 to 2 weeks -Follow-up with GI in 1 to 2 weeks -Please call Dr. Palm at [phone] if any questions regarding hospital stay -Please call nursing station at [phone] if any nursing or medication questions -Return to the emergency room if symptoms worsen Diet: AHA Followup: Ahsan Chávez MD [ASSOCIATE-ACTIVE - CAN ADMIT] - 1-2 Weeks (call to schedule an appointment) Narcisa Daniels [Primary Care Provider] - 1-2 Weeks (call to schedule an appointemnt) Time spent managing pt's care (in minutes): 55
[2023-07-17] MEDS ORDERED: EPINEPHRINE 1 MG/ML VIAL ONE ×2 (13:20→17:07)
--- NOTE | 2023-07-17 13:22 | EKG ---
Test Date: 2023-07-16 Test Time: 20:48:52 Powder Blender: ANETA MEASUREMENT RESULTS: Intervals: Rate: 105 SD: 146 QRSD: 82 QT: 400 QTc: 528 Barnum: P: 65 SD: 146 QRS: 39 T: 50 INTERPRETIVE STATEMENTS: Sinus tachycardia Prolonged QT Abnormal ECG Compared to ECG 06/18/2019 09:51:43 Prolonged QT interval now present Sinus rhythm no longer present Electronically Signed On 07-17-23 13:21:42 BAR CATCHER by Jordan Pitts
[2023-07-17] MEDS: METOPROLOL TARTRATE 5 MG/5 ML INJ IV PRN (16:15)
[2023-07-17] MEDS: Ringers Lactate 1,000 ML IV ONE (17:24)
[2023-07-17] MEDS ORDERED: LIDOCAINE 1% MPF 5 ML VIAL ONE (17:34)
[2023-07-17] MEDS ORDERED: propofoL 200 MG/20 ML VIAL IV ONE (17:34)
[2023-07-17] MEDS: LABETALOL 20 MG/4ML SYRINGE IV ONE (18:00)
[2023-07-17] MEDS ORDERED: HYDRALAZINE HCL 20 MG/ML VIAL ONE ×3 (18:17→18:19)
[2023-07-17] MEDS: HYDRALAZINE HCL 20 MG/ML VIAL ONE (18:25)
[2023-07-17 18:47] LABS: Hematocrit 26.6 % (36.0-45.0)
--- NOTE | 2023-07-17 23:36 | P.PN ---
Date of Service: 07/17/23 Patient was seen by gastroenterology. EGD was performed. Patient was some small ulcers but patient was unable to get the complete EGD because patient had retention of food particles and with bleeding at the pyloric junction. Continue with PPI. Poss gastroparesis and GI recommended gastric emptying study. Continue with PPI overnight intravenously and we will change to oral PPI in the morning. Patient may need Reglan as well. Anticipate discharge in the morning.
[2023-07-18] MEDS: LABETALOL 20 MG/4ML SYRINGE IV ONE (03:57)
[2023-07-18] MEDS: ACETAMINOPHEN 325 MG TABLET PO PRN (05:44)
[2023-07-18 05:49] LABS: Magnesium 1.6 mg/dL (1.6-2.4); Phosphorus 3.1 mg/dL (2.5-4.9); Potassium 3.4 mEq/L (3.5-5.1)
[2023-07-18] MEDS: MAGNESIUM SULFATE 1 gm IVPB 1 GM/100 ML BAG IV ONE (07:53)
[2023-07-18] MEDS: POTASSIUM 25 MEQ EFFERV TAB PO ONE (07:53)
[2023-07-18] MEDS ORDERED: ONDANSETRON 4 MG (ODT) TAB PO PRN (08:17)
[2023-07-18] MEDS ORDERED: MAGNESIUM HYDROXIDE 8% 30 ML PO PRN (08:17)
[2023-07-18] MEDS: SENOSIDES 8.6 MG TAB PO PRN (08:47)
[2023-07-18] MEDS: cloNIDine HCL 0.1 MG TAB PO SCH (08:48)
[2023-07-18] MEDS ORDERED: HYDRALAZINE HCL 20 MG/ML VIAL IV PRN (09:38)
[2023-07-18] MEDS: carvediloL 25 MG TAB PO ONE (09:40)
[2023-07-18] MEDS: Oxycodone HCl/Acetaminophen 5/325 MG TAB PO SCH (09:44)
[2023-07-18] MEDS: LOSARTAN POTASSIUM 50 MG TABLET PO SCH (09:46)
[2023-07-18] MEDS: carvediloL 25 MG TAB PO SCH (09:46)
[2023-07-18] MEDS: HYDRALAZINE HCL 25 MG TABLET PO SCH (13:58)
[2023-07-18] MEDS: POTASSIUM CL SA 10 MEQ TAB PO ONE (15:56)
[2023-07-18 16:17] VITALS: O2SAT 94
[2023-07-18] MEDS: FENTANYL 25 MCG/PATCH TD ONE (19:36)
[2023-07-18 19:55] VITALS: BP 154/79; TEMP 97.2
[2023-07-18] MEDS ORDERED: ALPRAZOLAM 1 MG TABLET PO SCH (21:00)
[2023-07-18] MEDS ORDERED: TRAZODONE 50 MG TABLET PO SCH (21:00)
== END 2023-07-18 19:50 | disposition home or self-care (01) | DRG 381 ==
LOC: ER 17:36 → ERHOLD 21:09 → 4TH 23:30 → OBSVTOIN 07-17 23:36
PROVIDERS: ADMIT Internal Medicine Nephrology; ATTEND Hospitalist
PROC: 30233N1 Transfusion of Nonautologous Red Blood Cells into Peripheral Vein, Percutaneous Approach (ICD-10-PCS; principal; 2023-07-17 13:00)
DX: K22.11 Ulcer of esophagus with bleeding (principal); D62 Acute posthemorrhagic anemia; N30.00 Acute cystitis without hematuria; I10 Essential (primary) hypertension; F41.9 Anxiety disorder, unspecified; E87.6 Hypokalemia; E78.5 Hyperlipidemia, unspecified; K59.00 Constipation, unspecified; K22.2 Esophageal obstruction; D50.9 Iron deficiency anemia, unspecified; K44.9 Diaphragmatic hernia without obstruction or gangrene; J44.9 Chronic obstructive pulmonary disease, unspecified; Z79.02 Long term (current) use of antithrombotics/antiplatelets; Z79.01 Long term (current) use of anticoagulants; Z79.899 Other long term (current) drug therapy
CPT/HCPCS: 36415; 71045; 80048; 80076; 81001; 82947; 83690; 83735; 83880; 84100; 84132; 84484; 85014; 85018; 85025; 85610; 86850; 86900; 86901; 86920; 87086; 87088; 93005; C9113; G0378; J0171; J0360; J1170; J2001; J2543; J2704; J3475; J3480; J7030; J7050; J7120; P9016

== ENCOUNTER 2024-08-02 14:51 | Inpatient (IN) | payer OTHER ==
[2024-08-02] MEDS ORDERED: NA CHLORIDE 0.9% 500 ML ONE (15:26)
[2024-08-02 16:07] LABS: Absolute Eosinophils 0.1 K/uL (0-0.5); Absolute Monocytes 0.7 K/uL (0.1-1.3); Absolute Neutrophil 5.3 K/uL (1.8-8.0); Basophils % 0.3 % (0-1.3); Hematocrit 29.4 % (36.0-45.0); Hemoglobin 9.4 g/dL (12.0-15.0); MCH 23.8 pg (27.0-35.0); MCV 74.3 fL (80-100); MPV 7.4 fL (7.6-11.3); Monocytes % 9.3 % (3.3-12.3); Neutrophils % 75.4 % (41.7-73.7); Platelets 355 thou/uL (152-406); RBC Red Blood Cell Count 3.96 M/uL (3.86-4.86); Red Cell Distribution Width 16.5 % (12.1-15.2)
[2024-08-02 16:29] LABS: Albumin 2.7 g/dL (3.4-5.0); Albumin/Globulin Ratio 0.8 (1.1-1.8); Anion Gap 7.7 mEq/L (5.0-15.0); Bilirubin Total 0.4 mg/dL (0.2-1.0); Globulin 3.6 g/dL (2.3-3.5); Potassium 2.7 mEq/L (3.5-5.1); Protein, Total 6.3 g/dL (6.4-8.2)
[2024-08-02 17:06] LABS: Specific Gravity 1.019 (1.005-1.030); Sqamous Epithelial None Seen /HPF (None Seen); Urine Bacteria <20 /HPF (<20); Urine Bilirubin NEGATIVE (Negative); Urine Blood Negative (Negative); Urine Clarity Extremely Turbid (Clear); Urine Color Yellow (Yellow); Urine Culture Reflex Order NOT NEEDED; Urine Glucose NEGATIVE (Negative); Urine Ketones 2+ (Negative); Urine Microscopic Reflex YN ORDER UMIC; Urine Mucus 4+ /HPF (None Seen); Urine Nitrite NEGATIVE (Negative); Urine Protein 1+ (Negative); Urine RBC <5 /HPF (None Seen); Urine Urobilinogen 3+ (Normal); Urine WBC Clump Rare /HPF (None Seen); Urine Yeast (Budding) Trace /HPF (None Seen); Urine pH 6.5 (5.0-7.0)
[2024-08-02] MEDS ORDERED: POTASSIUM 25 MEQ EFFERV TAB ONE (17:43)
--- NOTE | 2024-08-02 17:59 | RAD REPORT ---
EXAMINATION: CT HEAD WITHOUT CONTRAST CLINICAL INDICATION: Female, 74 years old.WEAKNESS TECHNIQUE: Axial CT images from the skull base to the vertex without intravenous contrast. Coronal an d sagittal reformatted images were created from the data set. One or more of the following dose reduction techniques were used: Automated exposure control, adjustment of the mA and/or kV according to patient size, and/or iterative reconstruction. Unless otherwise specified, incidental findings do not require dedicated imaging follow-up. [id number]. COMPARISON: 08/07/2023 FINDINGS: INTRACRANIAL: No acute intracranial hemorrhage. No hydrocephalus. No mass effect or midline shift. Mo derate chronic small vessel ischemic changes.Age advanced cerebral atrophy. VASCULATURE: No visualized abnormalities in the arteries or dural venous sinuses. SCALP/SKULL: No significant soft tissue or osseous abnormalities. SINUSES: The visualized paranasal sinuses and mastoid air cells are predominantly clear. IMPRESSION: No acute intracranial abnormality.
--- NOTE | 2024-08-02 18:04 | RAD REPORT ---
EXAM: Chest Single View HISTORY: weakness COMPARISON: 08/07/2023 FINDINGS: LUNGS/PLEURA: The lungs are clear. No pleural effusions or pneumothorax. No pulmonary edema. MEDIASTINUM: The mediastinal silhouette is within normal limits. CARDIAC: The cardiac silhouette is within normal limits. UPPER ABDOMEN: No significant abnormality. BONES: No acute abnormality. LINES/TUBES/OTHER: Loop recorder IMPRESSION: No evidence of acute cardiopulmonary disease.
--- NOTE | 2024-08-02 18:09 | RAD REPORT ---
EXAMINATION: CT ABDOMEN AND PELVIS WITH CONTRAST CLINICAL INDICATION: Female, 74 years old.CONSTIPATION TECHNIQUE: CT abdomen and pelvis was performed, after the administration of IV contrast, as per [facility] protocol. Axial, sagittal and coronal reconstructions were obtained. One or more of the following dose reduction techniques were used: Automated exposure control, adjustment of the mA and/o r kV according to patient size, and/or iterative reconstruction. Unless otherwise specified, incidental findings do not require dedicated imaging follow-up. [id number]. COMPARISON: 12/26/2021 FINDINGS: LOWER CHEST: Bilateral pleural effusions and associated atelectasis.No significant pericardial effusi on. Mitral annular calcifications.Moderate hiatal hernia. UPPER GI: No significant abnormality. LIVER: No significant focal abnormality. GALLBLADDER/BILE DUCTS: Cholelithiasis without CT evidence of acute cholecystitis.? PANCREAS: Atrophy, but otherwise unremarkable. SPLEEN: Unremarkable. ADRENALS: No adrenal masses. KIDNEYS AND URETERS: No hydronephrosis.No suspicious renal mass.No renal calculi. ABDOMINAL AORTA AND OTHER VESSELS: Mild atherosclerotic changes. PERITONEUM: No abnormal free fluid. No free air. LYMPH NODES: No pathologic lymphadenopathy. ABDOMINAL WALL: Unremarkable SMALL BOWEL/COLON: Small bowel has normal course and caliber. No colonic wall thickening or pericolon ic inflammatory changes. Mild diverticulosis without diverticulitis. Moderate formed stool in the colon. URINARY BLADDER: Underdistended but grossly unremarkable. REPRODUCTIVE ORGANS: 2.6 cm right adnexal cyst. This is unchanged since 12/26/2021. MUSCULOSKELETAL: Age-indeterminate L1, L2 compression fractures and inferior endplate fracture at L3. Remote appearing T12 and L4 compression fractures. Probably chronic T9 compression fracture. ADDITIONAL FINDINGS: None. IMPRESSION: No acute findings within the abdomen or pelvis. Moderate colonic stool could indicate constipation. N o bowel obstruction. Age indeterminant thoracic and lumbar compression fractures. MRI could better establish acuity if cli nically indicated.
[2024-08-02] MEDS ORDERED: NA CHLORIDE 0.9% 250 ML ONE (18:56)
[2024-08-02] MEDS ORDERED: KCL 20 MEQ/100 mL IVPB 100 ML IV ONE (18:57)
--- NOTE | 2024-08-02 19:53 | ER ---
Nurse's Notes [facility] Name: Brii Greco Age: 74 yrs Sex: Female : 1950 Arrival Date: 08/02/2024 Time: 14:51 Bed 15 Private MD: Diagnosis: Weakness;Hypokalemia Presentation: 08/02 14:53 Chief complaint: EMS states: CONSTIPATED X 2 DAYS. LIVES AT HOME WITH DAUGHTER. HX OF db DEMENTIA, COPD, AND ANXIETY. PER EMS PT FAMILY REPORTED PATIENT IS NORMALLY ALTERED BUT FOR 2 DAYS HAS NOT BEEN GETTING OFF THE COUCH. Coronavirus screen: Client denies travel out of the [place] in the last 14 days. At this time, the client does not indicate any symptoms associated with coronavirus-19. Ebola Screen: Patient negative for fever greater than or equal to 101.5 degrees Fahrenheit, and additional compatible Ebola Virus Disease symptoms Patient denies exposure to infectious person. Patient denies travel to an Ebola-affected area in the 21 days before illness onset. No symptoms or risks identified at this time. Initial Sepsis Screen: Does the patient meet any 2 criteria? Altered Mental Status. No. Patient's initial sepsis screen is negative. Does the patient have a suspected source of infection? No. Patient's initial sepsis screen is negative. Risk Assessment: Do you want to hurt yourself or someone else? Patient reports no desire to harm self or others. Onset of symptoms was August 02, 2024. 14:53 Method Of Arrival: [facility] db 14:53 Acuity: ASHLY 3 db Triage Assessment: 14:53 General: Appears in no apparent distress. comfortable, Behavior is calm, cooperative. db Pain: Complains of pain in back. Neuro: Level of Consciousness is awake, alert, obeys commands, Oriented to person, place, time, situation. Respiratory: Airway is patent Respiratory effort is even, unlabored, Respiratory pattern is regular, symmetrical. GI: Parent/caregiver reports the patient having constipation. Historical: - Allergies: 15:10 No Known Allergies; db - Home Meds: 15:10 escitalopram oxalate oral 20 mL [Active]; Oxycodone HCl Oral [Active]; db 15:15 Xanax 0.5 mg oral tablet [Active]; losartan 100 mg oral tablet daily [Active]; db carvedilol 25 mg oral tablet once [Active]; montelukast 10 mg oral tablet daily [Active]; omeprazole 40 mg Oral capsule,delayed release (e.c.) [Active]; clonidine HCl 0.2 mg Oral tablet 3 times per day [Active]; oxybutynin chloride 10 mg Oral Tablet, Extended Release 24 hr daily [Active]; ondansetron 4 mg oral Tablet,disintegrating [Active]; trazodone 100 mg oral tablet [Active]; Rexulti 2 mg oral tablet [Active]; Trelegy Ellipta inhalation [Active]; - PMHx: 15:10 Anxiety; COPD; Hypertension; db - Immunization history:: Adult Immunizations unknown. - Infectious Disease History:: Denies. - Social history:: Smoking status: Patient denies any tobacco usage or history of. Screenin:15 [facility] ED Fall Risk Assessment (Adult) History of falling in the last 3 months, db including since admission Yes- single mechanical fall (1 pt) Confusion or Disorientation Yes (5 pts) Intoxicated or Sedated No (0 pts) Impaired Gait No (0 pts) Mobility Assist Device Used No (0 pt) Altered Elimination No (0 pt) Score/Fall Risk Level 3 or more points = High Risk Oriented to surroundings, Maintained a safe environment, Hourly rounding (assess needs \T\ fall precautionary measures) done. Abuse screen: Denies threats or abuse. Denies injuries from another. Nutritional screening: No deficits noted. Tuberculosis screening: No symptoms or risk factors identified. Assessment: 16:05 Reassessment: Patient appears in no apparent distress at this time. Patient and/or db family updated on plan of care and expected duration. Pain level reassessed. General: Appears in no apparent distress. comfortable, Behavior is calm, cooperative. Pain: Complains of pain in back. Neuro: Level of Consciousness is awake, alert, obeys commands, Oriented to person. Respiratory: Airway is patent Respiratory effort is even, unlabored, Respiratory pattern is regular, symmetrical. 17:15 Reassessment: Patient appears in no apparent distress at this time. Patient and/or db family updated on plan of care and expected duration. Pain level reassessed. General: Appears in no apparent distress. comfortable. 18:15 Reassessment: Patient appears in no apparent distress at this time. Patient and/or db family updated on plan of care and expected duration. Pain level reassessed. General: Appears in no apparent distress. comfortable, Behavior is calm, cooperative. Neuro: Level of Consciousness is awake, alert, obeys commands, Oriented to person. Vital Signs: 14:53 BP 168 / 103; Pulse 80; Resp 18; Temp 98.5; Pulse Ox 97% on R/A; Weight 47.63 kg; db 15:30 BP 158 / 93; Pulse 81; Resp 18; Pulse Ox 96% on R/A; db 16:30 BP 198 / 88; Pulse 80; Resp 18; Pulse Ox 99% on R/A; db 17:45 BP 194 / 80; Pulse 82; Temp 18; Pulse Ox 98% on R/A; db 19:00 BP 170 / 100; Pulse 88; Resp 18; Pulse Ox 100% ; db ED Course: 14:53 Arm band placed on Patient placed in an exam room. db 15:01 Patient arrived in ED. db 15:03 Marcos Riddle PA is PHCP. cp 15:03 Deniz Calero MD is Attending Physician. cp 15:07 Judit Chavarria, ELIZABETH is Primary Nurse. db 15:10 Triage completed. db 15:55 Initial lab(s) drawn, by me, sent to lab. Missed attempt(s): 22 gauge in right db antecubital area. Bleeding controlled, band aid applied, catheter tip intact. 16:35 Urine collected: straight cath specimen. Straight cath inserted, using sterile db technique, 14 Fr. Specimen obtained. 16:45 Inserted saline lock: 22 gauge in right wrist, using aseptic technique. Flushed with 10 db mL NS. 17:15 Patient has correct armband on for positive identification. Call light in reach. Side db rails up X 1. Client placed on continuous cardiac and pulse oximetry monitoring. NIBP monitoring applied. monitoring analyst on. Pulse ox on. NIBP on. Warm blanket given. Pillow given. 17:50 CT Head Brain wo Cont In Process Unspecified. EDMS 17:50 XRAY Chest (1 view) In Process Unspecified. EDMS 17:53 CT Abd/Pelvis - IV Contrast Only In Process Unspecified. EDMS 19:52 Mohan Browne MD is Hospitalizing Provider. cp 20:38 Malaika Miranda, RN is Primary Nurse. ay 08/03 00:50 No provider procedures requiring assistance completed. ha1 Administered Medications: 08/02 16:45 Drug: NS 0.9% IV 500 ml 500 ml IV at 1 bolus once; to be given as a bolus over 60 db minutes Volume: 500 ml; Route: IV; Rate: 1 bolus; Site: right wrist; 19:12 Follow up: Response: No adverse reaction; IV Status: Completed infusion; IV Intake: db 500ml 17:52 Drug: Potassium PO Effervescent Tablet 50 mEq PO once; dissolve in 4 ounces of water or db juice Route: PO; 08/03 03:18 Follow up: Response: No adverse reaction ay 08/02 19:11 Drug: Potassium Chloride IV 20 mEq IV at calculated rate once; administer over 1-2 db hours Route: IV; Rate: calculated rate; Site: right wrist; 08/03 03:20 Follow up: Response: No adverse reaction; IV Status: Completed infusion ay 08/02 20:52 Drug: hydrALAZINE IVP 10 mg IVP once Route: IVP; Site: right wrist; ay 08/03 03:18 Follow up: Response: No adverse reaction ay 08/02 21:07 Drug: Potassium PO Effervescent Tablet 25 mEq PO once; dissolve in 4 ounces of water or ay juice Route: PO; 08/03 03:18 Follow up: Response: No adverse reaction ay 06:42 Drug: hydrALAZINE IVP 10 mg IVP once Route: IVP; Site: right wrist; ay 08:13 Follow up: Response: No adverse reaction; Blood pressure is lowered db Medication: 08/02 17:15 VIS not applicable for this client. db Intake: 19:12 IV: 500ml; Total: 500ml. db Outcome: 19:52 Decision to Hospitalize by Provider. 08/03 13:49 Patient left the ED. 1 Signatures: Dispatcher [employer] EDMS Marcos Riddle PA PA Sabrina Fajardo RN RN 1 Janel Church RN RN 1 Judit Chavarria RN RN db Malaika Miranda RN RN ay Corrections: (The following items were deleted from the chart) 08/02 19:15 16:05 Reassessment: Patient appears in no apparent distress at this time. Patient db and/or family updated on plan of care and expected duration. Pain level reassessed. Patient is alert, oriented x 3, equal unlabored respirations, skin warm/dry/pink. db 19:15 16:05 Neuro: Level of Consciousness is awake, alert, obeys commands, Oriented to db person, place, time, situation, db
--- NOTE | 2024-08-02 19:53 | EDPHYS ---
Physician Documentation [facility] Name: Brii Greco Age: 74 yrs Sex: Female : 1950 Arrival Date: 08/02/2024 Time: 14:51 Bed 15 Private MD: ED Physician Deniz Calero HPI: 08/02 15:25 This 74 yrs old Female presents to ER via EMS with complaints of Constipation. cp 15:25 general weakness, decreased appetite. cp 15:25 Onset: The symptoms/episode began/occurred gradually, and became worse today, patient cp unable to get up and ambulate. Historical: - Allergies: 15:10 No Known Allergies; db - Home Meds: 15:10 escitalopram oxalate oral 20 mL [Active]; Oxycodone HCl Oral [Active]; db 15:15 Xanax 0.5 mg oral tablet [Active]; losartan 100 mg oral tablet daily [Active]; db carvedilol 25 mg oral tablet once [Active]; montelukast 10 mg oral tablet daily [Active]; omeprazole 40 mg Oral capsule,delayed release (e.c.) [Active]; clonidine HCl 0.2 mg Oral tablet 3 times per day [Active]; oxybutynin chloride 10 mg Oral Tablet, Extended Release 24 hr daily [Active]; ondansetron 4 mg oral Tablet,disintegrating [Active]; trazodone 100 mg oral tablet [Active]; Rexulti 2 mg oral tablet [Active]; Trelegy Ellipta inhalation [Active]; - PMHx: 15:10 Anxiety; COPD; Hypertension; db - Immunization history:: Adult Immunizations unknown. - Infectious Disease History:: Denies. - Social history:: Smoking status: Patient denies any tobacco usage or history of. ROS: 15:30 Constitutional: Positive for poor PO intake, Negative for fever, cp 15:30 Eyes: Negative for injury, pain, redness, and discharge, cp 15:30 ENT: Negative for drainage from ear(s), ear pain, sore throat, difficulty swallowing, difficulty handling secretions, 15:30 Cardiovascular: Negative for chest pain, 15:30 Respiratory: Negative for cough, wheezing, 15:30 Abdomen/GI: Positive for constipation, Negative for vomiting, diarrhea, 15:30 Neuro: Positive for weakness, 15:30 All other systems are negative, Exam: 15:33 Constitutional: The patient appears in no acute distress, non-diaphoretic, non-toxic, cp well developed, frail, 15:33 Head/Face: Normocephalic, atraumatic. cp 15:33 Eyes: Pupils: equal, round, and reactive to light and accomodation, Conjunctiva: normal, no exudate, no injection, Sclera: no appreciated abnormality, Lids and lashes: appear normal, bilaterally, 15:33 ENT: External ear(s): are unremarkable, Nose: is normal, Mouth: Lips: dry, Oral mucosa: moist, Posterior pharynx: Airway: no evidence of obstruction, patent, 15:33 Chest/axilla: Inspection: normal, 15:33 Cardiovascular: Rate: normal, Rhythm: regular, Edema: is not appreciated, JVD: is not appreciated, 15:33 Respiratory: the patient does not display signs of respiratory distress, Respirations: normal, no use of accessory muscles, no retractions, labored breathing, is not present, Breath sounds: are clear throughout, no decreased breath sounds, no stridor, no wheezing, 15:33 Abdomen/GI: Inspection: abdomen appears normal, Palpation: abdomen is soft and non-tender, in all quadrants, 15:33 Skin: cellulitis, is not appreciated, no rash present. 15:33 Neuro: Orientation: to person, Mentation: able to follow commands, 20:51 ECG was reviewed by the Attending Physician. cp Vital Signs: 14:53 BP 168 / 103; Pulse 80; Resp 18; Temp 98.5; Pulse Ox 97% on R/A; Weight 47.63 kg; db 15:30 BP 158 / 93; Pulse 81; Resp 18; Pulse Ox 96% on R/A; db 16:30 BP 198 / 88; Pulse 80; Resp 18; Pulse Ox 99% on R/A; db 17:45 BP 194 / 80; Pulse 82; Temp 18; Pulse Ox 98% on R/A; db 19:00 BP 170 / 100; Pulse 88; Resp 18; Pulse Ox 100% ; db MDM: 15:03 Medical Screening Exam initiated cp 19:55 Data reviewed: vital signs, nurses notes, lab test result(s), EKG, radiologic studies, cp CT scan, plain films, and as a result, I will admit patient. 19:55 Differential Diagnosis altered mental status, sepsis, uti, failure to thrive, acute CT, cp dehydration. Management of patient was discussed with the following: Hospitalist: DR Browne will admit after discussion. I considered the following discharge prescriptions or medication management in the emergency department Medications were administered in the Emergency Department. See MAR. Independent interpretation of the following test(s) in the Emergency Department EKG: See my EKG interpretation above. Historians other than the Patient: Daughter/Son: daughter provides hpi. Care significantly affected by the following chronic conditions: Hypertension, Chronic Obstructive Pulmonary Disease. 08/02 15:21 Order name: CBC with Diff; Complete Time: 17:03 08/02 17:03 Interpretation: Normal except: HGB 9.4; HCT 29.4; MCV 74.3; MCH 23.8; RDW 16.5; MPV cp 7.4; ANJELICA% 75.4; LYM% 14.0. 08/02 15:21 Order name: CMP; Complete Time: 17:03 08/02 17:03 Interpretation: Normal except: K 2.7; CA 8.4; TP 6.3; ALB 2.7; GLOB 3.6; A/G 0.8. 08/02 15:21 Order name: Lipase; Complete Time: 17:03 cp 08/02 15:21 Order name: Urinalysis w/ reflexes; Complete Time: 18:14 cp 08/02 18:14 Interpretation: Normal except: [facility] Extremely Turbid; UKET 2+; UPROT 1+; UUROB 3+; cp UESTR 25; MUCUS 4+; BYST Trace. 08/02 15:21 Order name: Lactate w/ 2H reflex if indic.; Complete Time: 17:03 cp 08/02 20:51 Order name: Urinalysis w/ reflexes EDMS 08/02 20:51 Order name: CBC with Automated Diff EDMS 08/02 20:51 Order name: CBC with Automated Diff EDMS 08/02 20:51 Order name: Comprehensive Metabolic Panel EDMS 08/02 20:51 Order name: Comprehensive Metabolic Panel EDMS 08/02 17:05 Order name: CT Head Brain wo Cont; Complete Time: 18:14 08/02 18:15 Interpretation: Report reviewed. 08/02 17:05 Order name: XRAY Chest (1 view); Complete Time: 18:14 cp 08/02 17:05 Order name: CT Abd/Pelvis - IV Contrast Only; Complete Time: 18:14 cp 08/02 18:55 Order name: EKG; Complete Time: 18:55 cp 08/02 20:51 Order name: Case Management Consult [facility] 08/02 20:52 Order name: Physical Therapy Consult [facility] 08/02 15:21 Order name: IV Saline Lock; Complete Time: 16:46 cp 08/02 15:21 Order name: Labs collected and sent; Complete Time: 16:04 cp 08/02 18:55 Order name: EKG - Nurse/Tech; Complete Time: 20:53 cp EC:51 Rate is 84 beats/min. Rhythm is regular. NM interval is normal. QRS interval is normal. cp QT interval is normal. T waves are Inverted in lead aVR. Interpreted by me. Reviewed by me. Administered Medications: 16:45 Drug: NS 0.9% IV 500 ml 500 ml IV at 1 bolus once; to be given as a bolus over 60 db minutes Volume: 500 ml; Route: IV; Rate: 1 bolus; Site: right wrist; 19:12 Follow up: Response: No adverse reaction; IV Status: Completed infusion; IV Intake: db 500ml 17:52 Drug: Potassium PO Effervescent Tablet 50 mEq PO once; dissolve in 4 ounces of water or db juice Route: PO; 08/03 03:18 Follow up: Response: No adverse reaction ay 08/02 19:11 Drug: Potassium Chloride IV 20 mEq IV at calculated rate once; administer over 1-2 db hours Route: IV; Rate: calculated rate; Site: right wrist; 08/03 03:20 Follow up: Response: No adverse reaction; IV Status: Completed infusion ay 08/02 20:52 Drug: hydrALAZINE IVP 10 mg IVP once Route: IVP; Site: right wrist; ay 08/03 03:18 Follow up: Response: No adverse reaction ay 08/02 21:07 Drug: Potassium PO Effervescent Tablet 25 mEq PO once; dissolve in 4 ounces of water or ay juice Route: PO; 08/03 03:18 Follow up: Response: No adverse reaction ay 06:42 Drug: hydrALAZINE IVP 10 mg IVP once Route: IVP; Site: right wrist; ay 08:13 Follow up: Response: No adverse reaction; Blood pressure is lowered db Disposition Summary: 08/02/24 19:52 Hospitalization Ordered Notes: Hospitalization Status: Inpatient Admission cp Provider: Mohan Browne cp Condition: Stable cp Problem: new cp Symptoms: have improved cp Bed/Room Type: Standard cp Location: Telemetry/MedSurg (Inpatient)(08/03/24 13:08) bd Room Assignment: 402(08/03/24 13:08) bd Diagnosis - Weakness cp - Hypokalemia cp Forms: - Medication Reconciliation Form cp - SBAR form cp - Leadership Thank You Letter cp Addendum: 08/07/2024 12:48 I was immediately available for consultation during this patient's visit. I did not e c2 personally see the patient or discuss the patient with the TIFFANY. . Signatures: Dispatcher [employer] EDMS Mariaelena Rogers Corey, PA PA cp Garcia, Cindy, RN RN cg Judit Chavarria RN RN db Corral, Edwin, MD MD ec2 Malaika Miranda RN RN ay Corrections: (The following items were deleted from the chart) 08/02 15:21 15:21 CBC+H.LAB.BRZ ordered. EDMS EDMS 15:21 15:21 COMPREHENSIVE METABOLIC PANEL+C.LAB.BRZ ordered. EDMS EDMS 15:21 15:21 LIPASE+C.LAB.BRZ ordered. EDMS EDMS 15:21 15:21 Urinalysis+U.LAB.BRZ ordered. EDMS EDMS 15:21 15:21 LACTATE+C.LAB.BRZ ordered. EDMS EDMS 21:34 19:52 Telemetry/MedSurg (Inpatient) cp cg 21:34 19:52 cp cg 08/03 13:08 08/02 21:34 [facility] ER HOLD cg bd 08/03 13:08 08/02 21:34 ERHOLD- cg bd
[2024-08-02] MEDS ORDERED: HYDRALAZINE HCL 20 MG/ML VIAL ONE (20:45)
[2024-08-02] MEDS ORDERED: ACETAMINOPHEN 325 MG TABLET PO PRN (20:46)
--- NOTE | 2024-08-02 20:46 | P.HP ---
Certification for Inpatient Patient admitted to: Inpatient With expected LOS: >2 Midnights Practitioner: I am a practitioner with admitting privileges, knowledge of patient current condition, hospital course, and medical plan of care. Services: Services provided to patient in accordance with Admission requirements found in Title 42 Section 412.3 of the Code of Federal Regulations Patient History Date of Service: 08/02/24 Reason for admission: Failure to Thrive History of Present Illness: 74 yrs old Female with past medical history of anxiety, COPD, hypertension, dementia, hyperlipidemia who was recently been admitted to the hospital with hematemesis brought to ER with failure to thrive. Patient is a poor historian as she has a history of dementia. Most of the history is obtained from the chart review and also talking with the family member at the bedside. Patient is not eating or drinking fluids for the last few days. Family got concerned and was brought over here. Family is pursuing possible hospice. Patient was assessed in the ER and is admitted for further management Allergies No Known Allergies Allergy (Unverified 07/16/23 23:47) Home medications list reviewed: Yes Home Medications: Alprazolam [Xanax] 1 mg PO BEDTIME 07/17/23 Clonidine HCl [Catapres*] 0.2 mg PO BID 07/17/23 Losartan Potassium 25 mg PO DAILY 07/17/23 Ondansetron [Zofran (Odt)*] 4 mg PO PRN PRN 07/17/23 Oxycodone HCl/Acetaminophen [Oxycodon-Acetaminophen 7.5-300] 1 each PO BID 07/17/23 Trazodone HCl [Desyrel] 200 mg PO BEDTIME 07/17/23 carvediloL [Coreg] 25 mg PO BID 07/17/23 Hydralazine [Apresoline*] 25 mg PO TID #90 tab 07/18/23 Metoclopramide HCl [Reglan] 5 mg PO ACHS #120 tab 07/18/23 Senosides [Senokot*] 8.6 mg PO DAILY PRN #30 tab 07/18/23 Sucralfate [Carafate*] 1 gm PO ACHS #120 tab 07/18/23 - Past Medical/Surgical History Past Medical History: Reviewed- Non-Contributory Past Surgical History: Reviewed- Non-Contributory - Family History Family History: Reviewed- Non-Contributory - Social History Smoking Status: Unknown if ever smoked Alcohol use: No CD- Drugs: No Caffeine use: No Review of Systems is unable to be obtained Physical Examination - Vital Signs Temperature: 98.2 F Blood Pressure: 108/68 Pulse: 76 Respirations: 18 Pulse Ox (%): 94 - Physical Exam General: Alert, Demented, Mild distress HEENT: Atraumatic, Normocephalic Neck: Supple, JVD not distended Respiratory: Clear to auscultation bilaterally, Normal air movement Cardiovascular: Regular rate/rhythm, Normal S1 S2 Capillary refill: <2 Seconds Gastrointestinal: Soft and benign, W/out hepatosplenomegaly Musculoskeletal: No clubbing, No swelling Integumentary: No rashes Neurological: Other (Confused ), Dementia Lymphatics: No axilla or inguinal lymphadenopathy - Studies Laboratory Data (last 24 hrs) 08/02/24 08/02/24 15:57 15:57 WBC 7.00 Hgb 9.4 L Hct 29.4 L Plt Count 355 Sodium 140 Potassium 2.7 L BUN 18 Creatinine 0.60 Glucose 96 Total Bilirubin 0.4 AST 18 ALT 15 Alkaline Phosphatase 103 Lipase 10 L Assessment and Plan - Plan Failure to thrive Monitor closely Electrolytes monitor and replace accordingly Moderate protein calorie malnutrition Consumer Loan Manager consult Hypertension Antihypertensives titrated Continue home medications and titrate as needed Hyperlipidemia Continue statin Anxiety Continue home medications and titrate as needed Anemia of chronic disease Monitor H&H closely No overt bleeding at this time Case management consulted for possible hospice/placement Discussed with family members at the bedside GI/DVT prophylaxis Advanced directive full code Discharge Plan: Home Plan to discharge in: 48 Hours - Advance Directives Does patient have a Living Will: No Does patient have a Durable POA for Healthcare: No - Code Status/Comfort Care Code Status: Full Code Time Spent Managing Pts Care (In Minutes): 49
[2024-08-02] MEDS: ALPRAZOLAM 0.5 MG TABLET PO SCH (22:07)
[2024-08-02] MEDS ORDERED: TRAZODONE 50 MG TABLET ONE (22:08)
[2024-08-02] MEDS ORDERED: ALPRAZOLAM 0.5 MG TABLET ONE (22:11)
[2024-08-02] MEDS: TRAZODONE 50 MG TABLET PO SCH (22:15)
[2024-08-02] MEDS ORDERED: SENOSIDES 8.6 MG TAB PO PRN (22:23)
[2024-08-02] MEDS: ESCITALOPRAM 20 MG TAB PO SCH (22:30)
[2024-08-03 06:08] LABS: Absolute Basophils 0.1 K/uL (0-0.5); Absolute Eosinophils 0.1 K/uL (0-0.5); Absolute Lymphocytes (CBC) 1.2 K/uL (0.7-4.9); Absolute Monocytes 0.9 K/uL (0.1-1.3); Absolute Neutrophil 8.5 K/uL (1.8-8.0); Basophils % 0.5 % (0-1.3); Eosinophils % 0.7 % (0-4.4); Hematocrit 33.6 % (36.0-45.0); Hemoglobin 10.9 g/dL (12.0-15.0); Lymphocytes % 10.7 % (15.3-44.8); MCH 24.1 pg (27.0-35.0); MCHC 32.5 g/dL (32.0-36.0); MCV 74.3 fL (80-100); MPV 7.9 fL (7.6-11.3); Monocytes % 8.5 % (3.3-12.3); Neutrophils % 79.6 % (41.7-73.7); Nucleated Red Blood Cells % 0.1 % (0-0); Platelets 416 thou/uL (152-406); RBC Red Blood Cell Count 4.52 M/uL (3.86-4.86); Red Cell Distribution Width 16.8 % (12.1-15.2)
[2024-08-03] MEDS ORDERED: HYDRALAZINE HCL 20 MG/ML VIAL ONE (06:35)
[2024-08-03 06:38] LABS: Albumin 3.1 g/dL (3.4-5.0); Albumin/Globulin Ratio 0.7 (1.1-1.8); Anion Gap 10.9 mEq/L (5.0-15.0); Bilirubin Total 0.6 mg/dL (0.2-1.0); Globulin 4.2 g/dL (2.3-3.5); Potassium 2.9 mEq/L (3.5-5.1); Protein, Total 7.3 g/dL (6.4-8.2)
[2024-08-03] MEDS: carvediloL 25 MG TAB PO SCH (08:30)
[2024-08-03] MEDS: FOLIC ACID 1 MG, MULTIVITAMINS INJ 10 ML, THIAMINE HCL 100 MG in NA CHLORIDE 0.9% 1,000 ML IV SCH (08:32)
[2024-08-03] MEDS: ENOXAPARIN 40 MG/0.4 ML SQ SCH (09:00)
[2024-08-03] MEDS ORDERED: HOME MED 1 EA UNK (Oxycodone Hcl/Acetaminophen [Oxycodon-Acetaminophen 7.5-300] Tablet) PO SCH (09:00)
[2024-08-03] MEDS ORDERED: ESCITALOPRAM 20 MG TAB PO SCH (09:00)
[2024-08-03] MEDS ORDERED: carvediloL 6.25 MG TAB PO SCH (09:00)
[2024-08-03] MEDS ORDERED: ENOXAPARIN 40 MG/0.4 ML SQ ONE (09:40)
[2024-08-03] MEDS ORDERED: KCL 20 MEQ/100 mL IVPB 300 ML IV ONE (12:59)
[2024-08-03] MEDS: KCL 20 MEQ/100 mL IVPB 20 MEQ/100 ML BAG IV SCH (13:00)
--- NOTE | 2024-08-03 13:07 | P.PN ---
Date of Service: 08/03/24 Subjective Sleeping, will awaken to touch and attempts to answer Lethargic and weak Gagging to yogurt, will drink Cannot tolerate taking pills ROS 10 point ROS as noted above, otherwise negative Physical Exam General: Alert and oriented x1, Demented, lethargic HEENT: Atraumatic, Normocephalic Respiratory: Clear to auscultation bilaterally, Normal air movement Cardiovascular: RRR, Normal S1 S2 present, systolic murmur noted Capillary refill: <2 Seconds Gastrointestinal: Soft and benign on palpation, W/out hepatosplenomegaly Musculoskeletal: No clubbing, No swelling Integumentary: No rashes Neurological: Other (Confused ), Dementia Lymphatics: No axilla or inguinal lymphadenopathy Vitals Reviewed Problem list Failure to thrive Moderate protein calorie malnutrition Hypertension Hyperlipidemia Anxiety Anemia of chronic disease Assessment and Plan Failure to thrive Inadequate calorie intake Moderate protein calorie malnutrition Monitor closely Electrolytes monitor and replace accordingly Dietary consult Hypertension Antihypertensives titrated Continue home medications and titrate as needed Hydralazine IV Hyperlipidemia Continue statin Anxiety Continue home medications and titrate as needed Anemia of chronic disease Monitor H&H closely No overt bleeding at this time Case management consulted for possible hospice/placement Discussed with family members at the bedside DVT ppx Full code LOS 2-3 days <Kathie Amador - Last Filed: 08/03/24 12:57> I have personally seen and evaluated the patient. I have reviewed the history, physical exam findings, and assessment provided by Rishi Amador NP. Care with the plan of care as documented, with any additional modifications as noted <Maria Victoria Laguna - Last Filed: 08/03/24 17:09>
[2024-08-03] MEDS: HYDRALAZINE HCL 20 MG/ML VIAL IV PRN (15:35)
[2024-08-03] MEDS: LABETALOL 20 MG/4ML SYRINGE IV ONE ×2 (16:14→21:17)
[2024-08-03] MEDS: ONDANSETRON 4 MG/2 ML VIAL IV PRN (16:20)
[2024-08-03] MEDS: ENSURE PLANT-BASED PROTEIN CHOCOLATE 330 ML LIQUID PO SCH (17:00)
[2024-08-03] MEDS ORDERED: ONDANSETRON 4 MG (ODT) TAB PO PRN (18:08)
[2024-08-03] MEDS ORDERED: HOME MED 1 EA UNK (Losartan Potassium [Losartan Potassium] 25 MG Tablet) PO SCH (18:09)
[2024-08-03] MEDS: HYDRALAZINE HCL 25 MG TABLET PO SCH (18:09)
[2024-08-03] MEDS: dilTIAZem HCL 25 MG/5 ML VIAL IV ONE (18:29)
[2024-08-03 20:55] LABS: Anion Gap 12.7 mEq/L (5.0-15.0); Potassium 3.7 mEq/L (3.5-5.1); Troponin High Sensitivity 54.9 pg/mL (<58.9)
[2024-08-03] MEDS: METOCLOPRAMIDE 5 MG TAB PO SCH (21:00)
[2024-08-03] MEDS ORDERED: HOME MED 1 EA UNK (Trazodone Hcl [Desyrel] 100 MG Tablet) PO SCH (21:00)
[2024-08-03] MEDS ORDERED: TRAZODONE 50 MG TABLET PO SCH (21:00)
[2024-08-03] MEDS ORDERED: ALPRAZOLAM 0.5 MG TABLET PO SCH (21:00)
[2024-08-03] MEDS ORDERED: HOME MED 1 EA UNK (Clonidine Hcl [Catapres*] 0.2 MG Tablet) PO SCH (21:00)
[2024-08-03] MEDS ORDERED: ALPRAZOLAM 0.5 MG TABLET PO PRN (21:00)
[2024-08-03] MEDS ORDERED: ALPRAZOLAM 1 MG TABLET PO SCH (21:00)
[2024-08-03] MEDS: cloNIDine HCL 0.1 MG TAB PO SCH (21:00)
[2024-08-03] MEDS: CLONIDINE 0.2 MG/PATCH TD SCH (23:05)
[2024-08-03] MEDS: LORazepam 2 MG/ML VIAL IV ONE (23:06)
[2024-08-04] MEDS: HYDRALAZINE HCL 20 MG/ML VIAL IV ONE (04:23)
[2024-08-04] MEDS: MONTELUKAST 10 MG TAB PO SCH (08:32)
[2024-08-04] MEDS: LOSARTAN POTASSIUM 50 MG TABLET PO SCH (08:33)
[2024-08-04] MEDS: ASPIRIN 81 MG CHEWABLE TABLET PO SCH (08:33)
[2024-08-04] MEDS: CITALOPRAM 10 MG TABLET PO SCH (08:34)
[2024-08-04] MEDS: ALBUTEROL INHALER 200 PUFF/6.7 GM IH PRN (08:34)
[2024-08-04] MEDS: Fluticasone/Umeclidin/Vilanter [Trelegy Ellipta 100-62.5-25] Blst.W.Dev *PT OWN MED IH SCH (08:36)
[2024-08-04] MEDS ORDERED: HOME MED 1 EA UNK (Citalopram Hydrobromide [Citalopram Hbr] 20 MG Tablet) PO SCH (09:00)
--- NOTE | 2024-08-04 12:43 | P.CNS ---
Date of Consult: 08/04/24 Chief Complaint: Failure to Thrive History of Present Illness: Patient with PMH of dementia, HTN, HLD, has been having significant failure to thrive, poor intake and poor activity, patient is hard to wake up and communicate, per chart, patient did not complain about anything cardiac. Allergies No Known Allergies Allergy (Unverified 07/16/23 23:47) Home medications list reviewed: Yes Home Medications: Alprazolam [Xanax] 0.5 mg PO BID 07/17/23 Clonidine HCl [Catapres*] 0.2 mg PO TID 07/17/23 Losartan Potassium 25 mg PO DAILY 07/17/23 Ondansetron [Zofran (Odt)*] 4 mg PO Q4H PRN 07/17/23 Oxycodone HCl/Acetaminophen [Oxycodon-Acetaminophen 7.5-300] 1 each PO BID 07/17/23 Trazodone HCl [Desyrel] 100 mg PO BEDTIME 07/17/23 carvediloL [Coreg] 25 mg PO BID 07/17/23 Metoclopramide HCl [Reglan] 5 mg PO ACHS #120 tab 07/18/23 Senosides [Senokot*] 8.6 mg PO DAILY PRN #30 tab 07/18/23 Albuterol Inhaler [Ventolin Inhaler*] 2 puff IH PRN 08/03/24 Aspirin Chewable [Aspirin Chewable*] 1 tab PO DAILY 08/03/24 Brexpiprazole [Rexulti] 2 mg PO DAILY AT SUPPER 08/03/24 Citalopram Hydrobromide [Citalopram HBr] 20 mg PO DAILY 08/03/24 Fluticasone/Umeclidin/Vilanter [Trelegy Ellipta 100-62.5-25] 1 puff IH DAILY 08/03/24 Hydralazine [Apresoline*] 25 mg PO DAILY 08/03/24 Montelukast [Singulair] 10 mg PO DAILY 08/03/24 - Social History Smoking Status: Unknown if ever smoked Alcohol use: No CD- Drugs: No Caffeine use: No Review of Systems is unable to be obtained (pateint is sleepy and very hard to wake her up.) Physical Examination Temp Pulse Resp BP Pulse Ox 99.2 F 91 H 15 102/44 L 95 08/04/24 12:00 08/04/24 12:00 08/04/24 12:00 08/04/24 12:00 08/04/24 12:00 General: Cachectic, Demented, Unresponsive HEENT: Atraumatic, PERRLA, Mucous membr. moist/pink, EOMI, Sclerae nonicteric Neck: Supple, 2+ carotid pulse no bruit, No LAD, Without JVD or thyroid abnormality Respiratory: Clear to auscultation bilaterally, Normal air movement Cardiovascular: Regular rate/rhythm, Normal S1 S2 Gastrointestinal: Normal bowel sounds, No tenderness Musculoskeletal: No tenderness Integumentary: No rashes Neurological: Normal gait, Normal speech, Normal tone, Normal affect Lymphatics: No axilla or inguinal lymphadenopathy - Problems (1) Troponin level elevated Current Visit: Yes Status: Acute Plan: Troponin were very mild elevated and back to normal, there is no signs of cardiac injury, patient general condition is very poor and will not benefit from any further cardiac work. ASA 81 mg daily Lipitor 40 mg daily (2) HTN (hypertension) Current Visit: Yes Status: Acute Plan: per primary team to manage. cardiology will sign off, please call with nay questions.
--- NOTE | 2024-08-04 14:53 | P.PN ---
Date of Service: 08/04/24 Subjective: Seen resting in bed. She does not talk much. She nods her head yes or no only on certain questions. Blood pressure remains elevated ROS 10 point ROS as noted above, otherwise negative Physical Exam General: Alert and oriented x1, Demented, lethargic HEENT: Atraumatic, Normocephalic Respiratory: Clear to auscultation bilaterally, Normal air movement Cardiovascular: RRR, Normal S1 S2 present, systolic murmur noted Capillary refill: <2 Seconds Gastrointestinal: Soft and benign on palpation, W/out hepatosplenomegaly Musculoskeletal: No clubbing, No swelling Integumentary: No rashes Neurological: Other (Confused ), Dementia Lymphatics: No axilla or inguinal lymphadenopathy Vitals Reviewed Problem list Failure to thrive Moderate protein calorie malnutrition Hypertension Hyperlipidemia Anxiety Anemia of chronic disease Assessment and Plan Failure to thrive Inadequate calorie intake Moderate protein calorie malnutrition Monitor closely Electrolytes monitor and replace accordingly Dietary consult Speech therapy consult /swallow evaluation Hypertension Antihypertensives titrated Continue home medications and titrate as needed Stop oral clonidine Tachycardia Continue to monitor Hyperlipidemia Continue statin Anxiety On Xanax Continue Celexa On Lexapro Anemia of chronic disease Monitor H&H closely No overt bleeding at this time Elevated troponin No further workup at this time per cardiology Continue aspirin and statin Hypokalemia resolved Asthma Montelukast creative services writer recommendations Case management consulted for possible hospice/placement Discussed with family members at the bedside DVT ppx Full code LOS 2-3 days
[2024-08-04] MEDS: BREXPIPRAZOLE 2 MG PO SCH (16:17)
[2024-08-04 23:06] VITALS: BMI 19.2
[2024-08-05] MEDS: HYDRALAZINE HCL 20 MG/ML VIAL IV PRN (08:43)
--- NOTE | 2024-08-05 10:19 | P.PN ---
Date of Service: 08/05/24 Subjective: Discussed with daughter at length yesterday. Daughter states she feels the patient he is giving up on life. She is not able to care for her at home she expresses concern for hospice. Blood pressure is elevated. ROS 10 point ROS as noted above, otherwise negative Physical Exam General: Alert and oriented x1, Demented, lethargic HEENT: Atraumatic, Normocephalic Respiratory: Clear to auscultation bilaterally, Normal air movement Cardiovascular: RRR, Normal S1 S2 present, systolic murmur noted Capillary refill: <2 Seconds Gastrointestinal: Soft and benign on palpation, W/out hepatosplenomegaly Musculoskeletal: No clubbing, No swelling Integumentary: No rashes Neurological: Other (Confused ), Dementia Lymphatics: No axilla or inguinal lymphadenopathy Vitals Reviewed Problem list Failure to thrive Moderate protein calorie malnutrition Hypertension Hyperlipidemia Anxiety Anemia of chronic disease Assessment and Plan Failure to thrive Inadequate calorie intake Moderate protein calorie malnutrition Monitor closely Electrolytes monitor and replace accordingly Dietary consult Speech therapy consult /swallow evaluation Hypertension Increase losartan to 50 mg daily Continue clonidine, Coreg Stop oral clonidine Tachycardia Continue to monitor Hyperlipidemia Continue statin Anxiety On Xanax Continue Celexa On Lexapro Anemia of chronic disease Monitor H&H closely No overt bleeding at this time Elevated troponin No further workup at this time per cardiology Continue aspirin and statin Hypokalemia resolved Asthma Montelukast manager office services recommendations Case management consulted for possible hospice/placement Discussed with family members at the bedside DVT ppx Full code LOS 2-3 days
[2024-08-05] MEDS: LABETALOL 20 MG/4ML SYRINGE IV PRN (16:46)
--- NOTE | 2024-08-05 16:51 | EKG ---
Test Date: 2024-08-03 Test Time: 16:24:44 [employer] And [employer] Investigator: LYLE MEASUREMENT RESULTS: Intervals: Rate: 99 WY: 162 QRSD: 78 QT: 416 QTc: 533 [place]: P: 69 W[place]: 162 QRS: 11 T: 26 INTERPRETIVE STATEMENTS: Poor data quality, interpretation may be adversely affected Sinus rhythm with occasional premature ventricular complexes ST & T wave abnormality, consider inferior ischemia Prolonged QT Abnormal ECG Compared to ECG 08/02/2024 20:48:36 Ventricular premature complex(es) now present ST (T wave) deviation now present Possible ischemia now present Prolonged QT interval now present Electronically Signed On 08-05-24 16:46:02 DIETETIC TECH by Darron Flores
--- NOTE | 2024-08-05 16:51 | EKG ---
Test Date: 2024-08-03 Test Time: 16:39:52 Supervisor Network Control Operators: LYLE MEASUREMENT RESULTS: Intervals: Rate: 94 [place]: 136 QRSD: 80 QT: 434 QTc: 542 [place]: P: 51 AK: 136 QRS: 8 T: 21 INTERPRETIVE STATEMENTS: Normal sinus rhythm Septal infarct, age undetermined Prolonged QT Abnormal ECG Compared to ECG 08/03/2024 16:24:44 Myocardial infarct finding now present Ventricular premature complex(es) no longer present ST (T wave) deviation no longer present Possible ischemia no longer present Electronically Signed On 08-05-24 16:46:00 AUDIT INTERN by Darron Flores
--- NOTE | 2024-08-05 16:56 | EKG ---
Test Date: 2024-08-02 Test Time: 20:48:36 Kitchen Steward: JUANA MEASUREMENT RESULTS: Intervals: Rate: 84 ME: 130 QRSD: 80 QT: 430 QTc: 508 [place]: P: 68 ME: 130 QRS: 14 T: 13 INTERPRETIVE STATEMENTS: Normal sinus rhythm Normal ECG Compared to ECG 08/07/2023 17:33:38 Atrial flutter no longer present Myocardial infarct finding no longer present Prolonged QT interval no longer present Electronically Signed On 08-05-24 16:47:34 CLOTHER IN by Darron Flores
[2024-08-06] MEDS: LOSARTAN POTASSIUM 50 MG TABLET PO SCH (08:17)
[2024-08-06] MEDS: ALPRAZOLAM 0.5 MG TABLET PO SCH (20:12)
[2024-08-07 09:08] LABS: Absolute Eosinophils 0.1 K/uL (0-0.5); Absolute Monocytes 0.7 K/uL (0.1-1.3); Absolute Neutrophil 6.6 K/uL (1.8-8.0); Basophils % 0.4 % (0-1.3); Eosinophils % 1.3 % (0-4.4); Hematocrit 27.5 % (36.0-45.0); Hemoglobin 8.6 g/dL (12.0-15.0); Lymphocytes % 11.5 % (15.3-44.8); MCH 23.7 pg (27.0-35.0); MCHC 31.3 g/dL (32.0-36.0); MCV 75.9 fL (80-100); MPV 7.4 fL (7.6-11.3); Monocytes % 8.2 % (3.3-12.3); Neutrophils % 78.6 % (41.7-73.7); Platelets 310 thou/uL (152-406); RBC Red Blood Cell Count 3.63 M/uL (3.86-4.86); Red Cell Distribution Width 18.5 % (12.1-15.2)
[2024-08-07 09:30] LABS: Anion Gap 9.9 mEq/L (5.0-15.0); Magnesium 1.8 mg/dL (1.6-2.4); Phosphorus 2.6 mg/dL (2.5-4.9); Potassium 2.9 mEq/L (3.5-5.1)
[2024-08-07 11:36] VITALS: O2SAT 93
[2024-08-07] MEDS ORDERED: POTASS/SODIUM PHOSPHATE 1 PKT POWD.PACK PO SCH (12:00)
[2024-08-07] MEDS: KCL 20 MEQ/100 mL IVPB 20 MEQ/100 ML BAG IV SCH (12:08)
--- NOTE | 2024-08-07 12:27 | P.DS ---
Admission Date: 08/02/24 Discharge Date: 08/07/24 Disposition: HOSPICE-HOME Discharge Condition: SERIOUS Reason for Admission: Failure to Thrive Hospital Course: Failure to thrive Inadequate calorie intake Moderate protein calorie malnutrition -DC home with hospice Hypertension Home meds Tachycardia Better Hyperlipidemia Continue statin Anxiety HOme meds Anemia of chronic disease Elevated troponin No further workup at this time per cardiology Hypokalemia replaced Asthma Montelukast 74 yo patient admitted for failure to thrive, her imaging studies has been pretty negative, troponin was mildly elevated, cardiology was consulted, they did not recommend any further workup, family decided to take her home with hospice, when I see the patient this morning she does not have any acute complaints, I discussed with her daughter who is also a patient in the hospital, her daughter agrees to take her mom to go home with hospice, otherwise no other acute issues going on so I am planning to discharge to go home with hospice. Subjective: No chest pain or shortness of breath. No nausea or vomiting. No abdominal pain. Looks comfortable in the bed. Objective: General appearance: Alert and comfortable CVS: Normal S1 and S2 Lungs: Clear to auscultation bilaterally Abdomen: Soft, bowel sounds present, no tenderness Extremities: No pedal edema Vital Signs/Physical Exam: Temp Pulse Resp BP Pulse Ox 98 F 96 H 18 138/70 93 08/07/24 08:00 08/07/24 09:11 08/07/24 08:00 08/07/24 09:11 08/07/24 08:00 Laboratory Data at Discharge: WBC 8.40 thou/uL (4.3-10.9) 08/07/24 08:55 Hgb 8.6 g/dL (12.0-15.0) L 08/07/24 08:55 Hct 27.5 % (36.0-45.0) L 08/07/24 08:55 Plt Count 310 thou/uL (152-406) 08/07/24 08:55 Sodium 139 mEq/L (136-145) 08/07/24 08:55 Potassium 2.9 mEq/L (3.5-5.1) L 08/07/24 08:55 BUN 27 mg/dL (7-18) H 08/07/24 08:55 Creatinine 0.55 mg/dL (0.55-1.02) 08/07/24 08:55 Glucose 116 mg/dL (74-106) H 08/07/24 08:55 Phosphorus 2.6 mg/dL (2.5-4.9) 08/07/24 08:55 Magnesium 1.8 mg/dL (1.6-2.4) 08/07/24 08:55 Total Bilirubin 0.6 mg/dL (0.2-1.0) 08/03/24 05:35 AST 23 U/L (15-37) 08/03/24 05:35 ALT 16 U/L (13-56) 08/03/24 05:35 Alkaline Phosphatase 121 U/L (45-117) H 08/03/24 05:35 Lipase 10 U/L (13-75) L 08/02/24 15:57 Home Medications: Alprazolam [Xanax] 0.5 mg PO BID 07/17/23 Clonidine HCl [Catapres*] 0.2 mg PO TID 07/17/23 Losartan Potassium 25 mg PO DAILY 07/17/23 Ondansetron [Zofran (Odt)*] 4 mg PO Q4H PRN 07/17/23 Oxycodone HCl/Acetaminophen [Oxycodon-Acetaminophen 7.5-300] 1 each PO BID 07/17/23 Trazodone HCl [Desyrel] 100 mg PO BEDTIME 07/17/23 carvediloL [Coreg] 25 mg PO BID 07/17/23 Metoclopramide HCl [Reglan] 5 mg PO ACHS #120 tab 07/18/23 Senosides [Senokot*] 8.6 mg PO DAILY PRN #30 tab 07/18/23 Albuterol Inhaler [Ventolin Inhaler*] 2 puff IH PRN 08/03/24 Aspirin Chewable [Aspirin Chewable*] 1 tab PO DAILY 08/03/24 Brexpiprazole [Rexulti] 2 mg PO DAILY AT SUPPER 08/03/24 Citalopram Hydrobromide [Citalopram HBr] 20 mg PO DAILY 08/03/24 Fluticasone/Umeclidin/Vilanter [Trelegy Ellipta 100-62.5-25] 1 puff IH DAILY 08/03/24 Hydralazine [Apresoline*] 25 mg PO DAILY 08/03/24 Montelukast [Singulair*] 10 mg PO DAILY 08/03/24 Followup: Mechelle Alejandre MD [Primary Care Provider] -
[2024-08-07] MEDS ORDERED: POTASSIUM CL SA 10 MEQ TAB PO SCH (13:00)
[2024-08-07] MEDS: POTASSIUM 25 MEQ EFFERV TAB PO ONE (13:24)
[2024-08-07] MEDS: Oxycodone HCl/Acetaminophen 5/325 MG TAB PO SCH (14:03)
[2024-08-07 17:04] VITALS: BP 116/65
[2024-08-07 17:32] VITALS: TEMP 98
== END 2024-08-07 18:27 | disposition hospice, home (50) | DRG 641 ==
LOC: ER 14:51 → ERHOLD 20:46 → 4TH 08-03 13:29
PROVIDERS: ADMIT Family Medicine; ATTEND Hospitalist
DX: R62.7 Adult failure to thrive (principal); E44.0 Moderate protein-calorie malnutrition; Z68.1 Body mass index [BMI] 19.9 or less, adult; R64 Cachexia; I10 Essential (primary) hypertension; E87.6 Hypokalemia; E78.5 Hyperlipidemia, unspecified; J44.9 Chronic obstructive pulmonary disease, unspecified; D63.8 Anemia in other chronic diseases classified elsewhere; F03.90 Unspecified dementia, unspecified severity, without behavioral disturbance, psychotic disturbance, mood disturbance, and anxiety; R00.0 Tachycardia, unspecified; R79.89 Other specified abnormal findings of blood chemistry; Z51.5 Encounter for palliative care; Z79.01 Long term (current) use of anticoagulants; Z79.02 Long term (current) use of antithrombotics/antiplatelets; Z79.899 Other long term (current) drug therapy
CPT/HCPCS: 36415; 51702; 70450; 71045; 74177; 80048; 80053; 81001; 82947; 83605; 83690; 83735; 84100; 84484; 85025; 93005; 96361; 96365; 96366; 96375; 97116; 97161; 97530; 99285; J0360; J1650; J2405; J3411; J3480; J7030; J7040; J7050; Q9967